=== PATIENT | female | born 1945 | race Caucasian/White ===

== ENCOUNTER 2018-03-25 14:11 | Inpatient (IN) | payer OTHER, BC, MEDICARE ==
[~2018-03-25] VITALS: Ht 167.6 cm; Wt 67.6 kg
--- NOTE | 2018-03-25 14:17 | ED GENERAL ADULT ---
History of Present Illness General Chief Complaint: General Adult Stated Complaint: HYPOTENSION Source: patient, family Exam Limitations: no limitations Vital Signs & Intake/Output Vital Signs & Intake/Output Vital Signs Date Time Temp Pulse Resp B/P B/P Pulse O2 O2 Flow FiO2 Mean Ox Delivery Rate 03/25 1721 98.9 114 22 100/55 97 Room Air 03/25 1600 99.0 104 24 111/65 97 Nasal 2.0L Cannula 03/25 1500 97 Nasal 2.0L Cannula 03/25 1418 98.6 111 18 130/76 96 Room Air Allergies Coded Allergies: amoxicillin (From AUGMENTIN) (DIARRHEA 03/25/18) clavulanic acid (From AUGMENTIN) (DIARRHEA 03/25/18) pregabalin (From LYRICA) (IRRITABLE AND OUT OF IT 03/25/18) Reconcile Medications Albuterol Sulfate (Proair Hfa) 90 MCG HFA.AER.AD 2 PUF INH Q4 PRN SHORTNESS OF BREATH (Reported) Budesonide/Formoterol Fumarate (Symbicort 160-4.5 Mcg Inhaler) 160 MCG-4.5 MCG/ ACTUATION HFA.AER.AD 2 PUF INH BID SHORTNESS OF BREATH (Reported) Dexamethasone 4 MG TABLET 1 TAB PO WITH MEALS STEROID (Reported) Duloxetine HCl 60 MG CAPSULE.DR 1 CAP PO DAILY UNKNOWN (Reported) Hydroxychlorquine (Plaquenil) 200 MG TABLET 1 TAB PO BID UNKNOWN (Reported) Lisinopril 20 MG TABLET 1 TAB PO DAILY HEART (Reported) Oxycodone HCl 5 MG TABLET 1-2 TAB PO Q4-6 PRN PRN PAIN (Reported) Pantoprazole Sodium 40 MG TABLET.DR 2 TAB PO DAILY GI (Reported) Prednisone 2.5 MG TABLET 1 TAB PO DAILY PRN STEROID (Reported) Rosuvastatin Calcium (Crestor) 5 MG TABLET 1 TAB PO DAILY CHOLESTEROL ( Reported) Triage Nurses Notes Reviewed? yes Onset: Abrupt Duration: hour(s): Timing: recent history HPI: 03/25/18 6:19 PM 72-year-old female presents to the emergency department for hypotension. According to Dr. Ayala' she was at the cancer center today and was scheduled for radiation therapy. She had been weaned off steroids and presented with a blood pressure of 60 and feeling like she was given a pass out. She denies any chest pain. She does have chronic shortness of breath. She has a history of metastatic lung cancer. Past History Medical History Any Pertinent Medical History? see below for history Respiratory: lung cancer metastatic Pneumonia Vaccine: 08/20/10 Influenza Vaccine: 07/21/11 Surgical History Surgical History: non-contributory Psychosocial History Who do you live with Spouse Services at Home None What is your primary language Romansh Family History Hx Contributory? No Review of Systems Review of Systems Constitutional: Denies: fever. EENTM: Reports: no symptoms. Respiratory: Reports: cough, short of breath. Cardiovascular: Denies: chest pain. GI: Denies: abdominal pain. Genitourinary: Reports: no symptoms. Musculoskeletal: Reports: no symptoms. Skin: Reports: no symptoms. Neurological/Psychological: Reports: see HPI. Hematologic/Endocrine: Reports: no symptoms. Immunologic/Allergic: Reports: no symptoms. Physical Exam Physical Exam General Appearance: alert, awake, anxious, moderate distress Head: atraumatic, normal appearance Eyes: Bilateral: normal appearance, PERRL, EOMI. Ears, Nose, Throat: normal pharynx, normal ENT inspection, hearing grossly normal Neck: normal inspection, supple, full range of motion Respiratory: decreased breath sounds Cardiovascular: regular rate/rhythm Peripheral Pulses: 2+ radial (R), 2+ radial (L) Gastrointestinal: soft, non-tender Back: decreased range of motion Extremities: normal inspection Neurologic/Psych: no motor/sensory deficits, awake, alert, oriented x 3 Skin: pallor Core Measures ACS in differential dx? No CVA/TIA Diagnosis: No Sepsis Present: No Sepsis Focused Exam Completed? No Progress Differential Diagnoses I considered the following diagnoses in my evaluation of the patient: [Pulmonary embolism, pneumonia, sepsis, adrenal insufficiency, symptomatic anemia, dehydration] Plan of Care: Orders Procedure Date/time Status Heart Healthy Diet 03/26 B Active Change service to 03/25 1827 Active Patient Data 03/25 1804 Active ED Holding Orders 03/25 1744 Active Admit to inpatient 03/25 1744 Active Vital Signs 03/25 1744 Active Code Status 03/25 1744 Active CTA CHEST-PULMONARY EMBOLISM 03/25 1726 Active Intake & Output 03/25 1613 Active CULTURE,URINE 03/25 1420 Active BLOOD CULTURE 03/25 1420 Active URINALYSIS 03/25 1420 Complete TROPONIN LEVEL 03/25 142 Complete D-DIMER 03/25 1420 Complete COMPREHENSIVE METABOLIC PANEL 03/25 142 Complete CBC WITHOUT DIFFERENTIAL 03/25 142 Complete EKG 03/25 142 Active Current Medications Sig/Aleja Start time Last Medication Dose Stop Time Status Admin Azithromycin 500 MG ONCE ONE 03/25 1745 AC 03/25 (Zithromax) 03/25 Sodium Chloride 250 ML (Normal Saline 0.9%) Laboratory Tests 03/25/18 1600: Urinalysis LIGHT H, Urine Color YEL, Urine Clarity HAZY H, Urine pH 6.0, Ur Specific Wheatley >= 1.030, Urine Protein TRACE H, Urine Ketones NEG, Urine Nitrite NEG, Urine Bilirubin NEG, Urine Urobilinogen 0.2, Ur Leukocyte Esterase NEG, Ur Microscopic SEDIMENT EXAMINED, Urine RBC 3-5, Urine WBC 1-3 H, Ur Epithelial Cells FEW, Hyaline Casts 5-10 H, Granular Casts RARE H, Urine Mucus FEW, Urine Hemoglobin SMALL H, Urine Glucose NEG 03/25/18 1458: Anion Gap 9, Estimated GFR > 60, BUN/Creatinine Ratio 31.1 H, Glucose 132 H, Calcium 8.8, Total Bilirubin 0.6, AST 25, ALT 50, Alkaline Phosphatase 101, Troponin I 0.07, Total Protein 6.0 L, Albumin 3.3 L, Globulin 2.7, Albumin/ Globulin Ratio 1.2, D-Dimer High Sensitivty 862 H, CBC w Diff MAN DIFF ORDERED, RBC 4.80, MCV 84.1, MCH 28.4, MCHC 33.8, RDW 18.6 H, MPV 7.2 L, Gran % 94.1 H , Lymphocytes % 2.6 L, Monocytes % 3.1, Eosinophils % 0.1, Basophils % 0.1, Absolute Granulocytes 11.8 H, Segmented Neutrophils 87 H, Band Neutrophils 4, Absolute Lymphocytes 0.3 L, Lymphocytes 4 L, Monocytes 2, Absolute Monocytes 0.4, Absolute Eosinophils 0, Absolute Basophils 0, Metamyelocytes 2 H, Myelocytes 1 H, Platelet Estimate ADEQUATE, Normocytic RBCs VERIFIED, Normochromic RBCs VERIFIED Microbiology 03/25 1600 URINE ROUT: Urine Culture - RECD 03/25 1510 BLOOD: Blood Culture - RECD 03/25 1458 BLOOD: Blood Culture - RECD Initial ED EKG: nonspecific ST T wave chg, Sinus tachycardia, motion artifact Departure Departure Disposition: STILL A PATIENT Condition: Stable Clinical Impression Primary Impression: Hypotension Secondary Impressions: Lung cancer, Pneumonia Referrals: Jeane LUEVANO,Diogo Cantrell (PCP/Family) Departure Forms: Customer Survey General Discharge Information Comments PATIENT: SANJAY KNIGHT PRESENT AGE: 72 PATIENT ACCOUNT NO: [id number] : 44 LOCATION: [facility] ORDERING PHYSICIAN: Reuben Mclaughlin DO SERVICE DATE: 03/25/18 EXAM TYPE: RAD - XRY-PORTABLE CHEST XRAY EXAMINATION: XR PORTABLE CHEST CLINICAL INFORMATION: Hypertension. Rule out pneumonia. COMPARISON: 02/19/2018 TECHNIQUE: Portable frontal view of the chest was obtained. FINDINGS: There is elevation of the left hemidiaphragm with marked volume loss left lower lobe and lingula. Aeration of this region is slightly improved as compared to prior. Ill-defined attenuation on the left hilar region is consistent with the known left perihilar mass. There is a 1.7 cm nodular opacity overlying the right upper lobe at the level of the right third rib anteriorly which is new as compared to prior. No additional opacities are identified in the right lung. Cardiac silhouette is obscured by the elevated left hemidiaphragm. Calcific atherosclerosis is present in the thoracic aorta. A total shoulder prosthesis is present on the right. Soft tissue anchors from a rotator cuff repair are present on the left. 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 IMPRESSION: 1. Improved aeration of the left lung base as compared to prior with persistent volume loss and atelectasis, as result of the left hilar mass. Superimposed consolidation be difficult to exclude in this region. 2. New 1.7 cm nodular opacity in the right midlung which could be due to a new focus of developing consolidation. DICTATED BY: Deep Stratton MD DATE/TIME DICTATED:03/25/181444 CLINICAL PROGRAM MANAGER:JENNIFER DATE/TIME TRANSCRIBED:03/25/181444 CONFIDENTIAL, DO NOT COPY WITHOUT APPROPRIATE AUTHORIZATION. <Electronically signed in Other Vendor System> SIGNED BY: Deep Stratton MD 03/25/18 9599 Admission Note Spoke With: Jude Winters MD Documentation of Exam: Documentation of any treatments & extenuating circumstances including Concerns Regarding Discharge (functional status, medication knowledge or non-compliance, living conditions, etc.) that warrant an admission rather than observation: Critical Care Note Critical Care Note Critical Care Time: 30-74 min
[2018-03-25] MEDS ORDERED: PROAIR HFA8.5 GM INH (14:44)
[2018-03-25] MEDS ORDERED: SYMBICORT 16010.2 GM INH (14:45)
[2018-03-25] MEDS ORDERED: CRESTOR5 M1 PO (14:45)
[2018-03-25] MEDS ORDERED: DULOXETINE HCL60 MG PO (14:46)
[2018-03-25] MEDS ORDERED: DEXAMETHASONE4 M1 PO (14:46)
[2018-03-25] MEDS ORDERED: LISINOPRIL20 M1 PO (14:47)
[2018-03-25] MEDS ORDERED: PLAQUENIL200 M1 PO (14:47)
[2018-03-25] MEDS ORDERED: PANTOPRAZOLE SO40 M1 PO (14:48)
[2018-03-25] MEDS ORDERED: OXYCODONE HCL5 M1 PO (14:48)
[2018-03-25] MEDS ORDERED: PREDNISONE2.5 M1 PO (14:49)
--- NOTE | 2018-03-25 14:56 | RADIOLOGY REPORT ---
EXAMINATION: XR PORTABLE CHEST CLINICAL INFORMATION: Hypertension. Rule out pneumonia. COMPARISON: 02/19/2018 TECHNIQUE: Portable frontal view of the chest was obtained. FINDINGS: There is elevation of the left hemidiaphragm with marked volume loss left lower lobe and lingula. Aeration of this region is slightly improved as compared to prior. Ill-defined attenuation on the left hilar region is consistent with the known left perihilar mass. There is a 1.7 cm nodular opacity overlying the right upper lobe at the level of the right third rib anteriorly which is new as compared to prior. No additional opacities are identified in the right lung. Cardiac silhouette is obscured by the elevated left hemidiaphragm. Calcific atherosclerosis is present in the thoracic aorta. A total shoulder prosthesis is present on the right. Soft tissue anchors from a rotator cuff repair are present on the left. 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 IMPRESSION: 1. Improved aeration of the left lung base as compared to prior with persistent volume loss and atelectasis, as result of the left hilar mass. Superimposed consolidation be difficult to exclude in this region. 2. New 1.7 cm nodular opacity in the right midlung which could be due to a new focus of developing consolidation.
[2018-03-25 15:11] LABS: ABSOLUTE BASOPHIL COUNT 0 /CUMM (0.0-0.2); ABSOLUTE EOSINOPHIL COUNT 0 /CUMM (0.0-0.7); ABSOLUTE GRANULOCYTE CT 11.8 /CUMM (1.4-6.5); ABSOLUTE LYMPH COUNT 0.3 /CUMM (1.2-3.4); ABSOLUTE MONOCYTE COUNT 0.4 /CUMM (0.10-0.60); BASOPHIL % 0.1 % (0.0-2.0); EOSINOPHIL % 0.1 % (0-5); GRANULOCYTE % 94.1 % (42.2-75.2); HEMATOCRIT 40.4 % (37-47); MEAN CORPUSCULAR HGB 28.4 PG (27.0-31.0); MEAN CORPUSCULAR HGB CONC 33.8 G/DL (33.0-37.0); MEAN CORPUSCULAR VOLUME 84.1 FL (81.0-99.0); MEAN PLATELET VOLUME 7.2 FL (7.4-10.4); PLATELET COUNT 192 /CUMM (130-400); RBC DISTRIBUTION WIDTH 18.6 % (11.5-14.5); WHITE BLOOD CELL COUNT 12.6 /CUMM (4.8-10.8)
--- NOTE | 2018-03-25 18:56 | CT SCAN REPORT ---
EXAMINATION: CT ANGIOGRAM OF THE CHEST WITH AND WITHOUT CONTRAST (CT PULMONARY ANGIOGRAM FOR PE) CLINICAL INFORMATION: Shortness of breath. Hypotension. COMPARISON: CT from prior lung biopsy performed 02/19/2018. No prior diagnostic CT available. TECHNIQUE: Prior to contrast administration, noncontrast localization images were obtained. Subsequently, multidetector volumetric imaging was performed from the thoracic inlet to below the diaphragms following the administration of 95 mL Optiray 320 intravenous contrast. No contrast reaction reported. Sagittal, coronal, and MIP oblique sagittal reformatted images were obtained on the CT workstation, uploaded to PACS, and reviewed. Total exam dose-length product 262 mGy-cm. FINDINGS: QUALITY OF STUDY/CONTRAST BOLUS: Satisfactory PULMONARY ARTERIES: No central or segmental pulmonary emboli. There is cut off of a lingular subsegmental branch extending into the hilar mass. THORACIC AORTA: No aneurysm or dissection. LUNG: The central airways are patent. There is significant narrowing of the central left lower lobe bronchi. There is central occlusion of the lingular bronchi. There is severe centrilobular emphysema. There is a centrally necrotic left upper lobe central mass which is indistinguishable from the hilum. This area measures approximately 4.8 x 4.5 x 7.9 cm. This extends inferiorly in the lingula and could be in part associated with segmental collapse. The central foci of gas suggests necrosis. Filling defects within the central bronchi in this area suggests bronchial invasion. There is also irregularity in the hilar region suggesting hilar invasion. In addition, there is a spiculated right upper lobe nodule which measures 2 x 0.9 x 1.3 cm. This is not seen on the previous CT from 02/19/2018. Additional dependent opacity along the right major fissure seen on series 2 image 247. This is unchanged. Additional scattered smaller nodules are noted. For instance, anterior right upper lobe 0.4 cm nodule, series 2 image 91. Right upper lobe 0.3 cm nodule on series 2 image 117. Left upper lobe spiculated 0.5 cm nodule, series 2 image 89. There is dependent opacity in the left lower lobe. There is a small left pleural effusion. No pneumothorax. MEDIASTINUM: The heart is normal in size. Trace pericardial effusion. There is subcarinal lymphadenopathy with short axis dimension measuring 1.7 cm. Invasion of the soft tissue irregularity in the left hilum and AP window. No evidence of septal bowing or right heart strain. CHEST WALL/AXILLA: No axillary or internal mammary lymphadenopathy. OSSEOUS STRUCTURES: No acute or suspicious osseous abnormality. Multilevel degenerative changes are seen in the spine. UPPER ABDOMEN: Left upper pole renal cyst. No reflux of contrast into the hepatic veins to suggest elevated right heart pressures. IMPRESSION: 1. No pulmonary embolism. 2. Invasive left perihilar necrotic mass, with extension into the local bronchi and adjacent hilum. The extension of density into the lingula could represent additional neoplasm versus segmental lung collapse. 3. Multiple additional pulmonary nodules are present, which are nonspecific. While these could be infectious or inflammatory, malignancy is not excluded, particularly with a background of severe emphysema. Most prominently, the spiculated right upper lobe 2 cm nodule was not seen on the previous biopsy planning CT from 02/19/2018. VTE: negative
--- NOTE | 2018-03-25 19:07 | Admission Certification ---
Admission Certification Certification Statement - As attending physician, I certify that at the time of - admission, based on clinical presentation, severity of - symptoms, need for further diagnostic testing and - therapeutic interventions, and risk of adverse outcomes - without in-hospital treatment, in my clinical assessment, - this patient requires an acute hospital stay for a minimum - of two nights or longer. I have also considered psychsocial - factors such as support system, advanced age, financial - issues, cognitive issues, and failed out-patient treatments, - past re-admission history, safety of patient, and lack of - compliance as applicable. Specific rationale supporting this admission is: 72 yo F with h/o adenocarcinoma of the lung comes in for evaluation of hypotension.
[2018-03-25 20:08] VITALS: BP 118/62
--- NOTE | 2018-03-25 20:26 | History & Physical ---
Kadeem Darling MD,[facility] 03/25/182024: General Information and HPI MD Statement: I have seen and personally examined YAKELIN KNIGHT and documented this H&P. The patient is a 72 year old F who presented with a patient stated chief complaint of [dizziness]. Source of Information: patient, family, old records History of Present Illness: Patient is 72 F with PMH of COPD (on 2l o2), h/o HTN, HLip, osteopenia, SLE (on prednisolon), RA, low plt (2/2 SLE) and lung cancer (richard Faust brain mets, dx 2m ago, s/p chemo and radiotx) presented to the ED for evaluation of dizziness due to low blood pressure. Patient was alert, partially oriented and was poor historian, accordingly her was interviewed to complete the history. Briefly patient was diagnosed with lung cancer 2 months ago, had chemotherapy and radiation (42 weeks, last episode yesterday). Patient also recieved several dosed of IV steroids for her brain mets, received 2 weeks of corticosteroids initially before gamma knife X1 on February 19, and then was again administered corticosteroids till last Saturday. She was then cotninued on oral prednisolon for her SLE. Today she went to cancer Center for planning continuation of care, however she had low blood pressure and was transferred to [facility]. Patient also had a recent episode of UTI and finished Bactrim course on Saturday, she reported some nausea but no vomiting, decreased appetite, sore throat, odynophagia. She also denied occasional headache and complained of weakness, reported chest soreness with cough and deep breathing, however denied any shortness of breathing, cough, and abdominal pain. She also denied smoking or drinking alcohol. Allergies/Medications Allergies: Coded Allergies: amoxicillin (From AUGMENTIN) (DIARRHEA 03/25/18) clavulanic acid (From AUGMENTIN) (DIARRHEA 03/25/18) pregabalin (From LYRICA) (IRRITABLE AND OUT OF IT 03/25/18) Home Med list Albuterol Sulfate (Proair Hfa) 90 MCG HFA.AER.AD 2 PUF INH Q4 PRN SHORTNESS OF BREATH (Reported) Budesonide/Formoterol Fumarate (Symbicort 160-4.5 Mcg Inhaler) 160 MCG-4.5 MCG/ ACTUATION HFA.AER.AD 2 PUF INH BID SHORTNESS OF BREATH (Reported) Dexamethasone 4 MG TABLET 1 TAB PO WITH MEALS STEROID (Reported) Duloxetine HCl 60 MG CAPSULE.DR 1 CAP PO DAILY UNKNOWN (Reported) Hydroxychlorquine (Plaquenil) 200 MG TABLET 1 TAB PO BID UNKNOWN (Reported) Lisinopril 20 MG TABLET 1 TAB PO DAILY HEART (Reported) Oxycodone HCl 5 MG TABLET 1-2 TAB PO Q4-6 PRN PRN PAIN (Reported) Pantoprazole Sodium 40 MG TABLET.DR 2 TAB PO DAILY GI (Reported) Prednisone 2.5 MG TABLET 1 TAB PO DAILY PRN STEROID (Reported) Rosuvastatin Calcium (Crestor) 5 MG TABLET 1 TAB PO DAILY CHOLESTEROL ( Reported) Past History Travel History Traveled to [place] past 21 day No Medical History Neurological: BRAIN METS Respiratory: lung cancer metastatic Cancer(s): LUNG CA, BRAIN METS Isolation History: Standard Pneumonia Vaccine: 08/20/10 Influenza Vaccine: 07/21/11 Surgical History Surgical History: non-contributory Past Family/Social History Psychosocial History Services at Home: None Review of Systems Review of Systems Constitutional: Reports: see HPI. Exam & Diagnostic Data Last 24 Hrs of Vital Signs/I&O Vital Signs Date Time Temp Pulse Resp B/P B/P Pulse O2 O2 Flow FiO2 Mean Ox Delivery Rate 03/25 2008 Nasal 2.0L Cannula 03/25 2008 99.5 105 19 118/62 100 Nasal 2.0L Cannula 03/25 1926 97 Nasal 2.0L Cannula 03/25 1925 98.3 101 18 113/57 98 Nasal 2.0L Cannula 03/25 1721 98.9 114 22 100/55 97 Room Air 03/25 1600 99.0 104 24 111/65 97 Nasal 2.0L Cannula 03/25 1500 97 Nasal 2.0L Cannula 03/25 1418 98.6 111 18 130/76 96 Room Air Intake & Output 03/26 0800 03/26 0000 03/25 1600 Intake Total 2450 Output Total 350 Balance 2100 Intake, IV 2450 Output, Urine 350 Patient 0 lb 130 lb Weight Weight Reported by Patient Reported by Patient Measurement Method Physical Exam General Appearance Alert, Cooperative, No Acute Distress, partially oriented, in her baseline according to Skin Temp/Moisture Exam: Warm/Dry Sepsis Skin Exam (color): Normal for Ethnicity HEENT Atraumatic, EOMI, ORAL TRUSH Cardiovascular Normal S1, Normal S2 Lungs decreased bilateral air entry,no wheezing Abdomen Soft, No Tenderness Neurological Normal Speech, Strength at 5/5 X4 Ext, Cranial Nerves 3-12 NL, remembers 1 of 3 words Extremities No Edema Last 24 Hrs of Labs/Judah: Laboratory Tests 03/25/18 2325: Troponin I 0.08 03/25/18 1600: Urinalysis LIGHT H, Urine Color YEL, Urine Clarity HAZY H, Urine pH 6.0, Ur Specific [place] >= 1.030, Urine Protein TRACE H, Urine Ketones NEG, Urine Nitrite NEG, Urine Bilirubin NEG, Urine Urobilinogen 0.2, Ur Leukocyte Esterase NEG, Ur Microscopic SEDIMENT EXAMINED, Urine RBC 3-5, Urine WBC 1-3 H, Ur Epithelial Cells FEW, Hyaline Casts 5-10 H, Granular Casts RARE H, Urine Mucus FEW, Urine Hemoglobin SMALL H, Urine Glucose NEG 03/25/18 1458: Anion Gap 9, Estimated GFR > 60, BUN/Creatinine Ratio 31.1 H, Glucose 132 H, Calcium 8.8, Total Bilirubin 0.6, AST 25, ALT 50, Alkaline Phosphatase 101, Troponin I 0.07, Total Protein 6.0 L, Albumin 3.3 L, Globulin 2.7, Albumin/ Globulin Ratio 1.2, TSH 2.480, Free T4 1.26, Cortisol PM Sample 21.6 H, D-Dimer High Sensitivty 862 H, CBC w Diff MAN DIFF ORDERED, RBC 4.80, MCV 84.1, MCH 28.4, MCHC 33.8, RDW 18.6 H, MPV 7.2 L, Gran % 94.1 H, Lymphocytes % 2.6 L, Monocytes % 3.1, Eosinophils % 0.1, Basophils % 0.1, Absolute Granulocytes 11.8 H, Segmented Neutrophils 87 H, Band Neutrophils 4, Absolute Lymphocytes 0.3 L, Lymphocytes 4 L, Monocytes 2, Absolute Monocytes 0.4, Absolute Eosinophils 0, Absolute Basophils 0, Metamyelocytes 2 H, Myelocytes 1 H, Platelet Estimate ADEQUATE, Normocytic RBCs VERIFIED, Normochromic RBCs VERIFIED Microbiology 03/25 2148 LOWER RESP: Respiratory Culture - ORD 03/25 2148 LOWER RESP: Gram Stain - ORD 03/25 1600 URINE ROUT: Urine Culture - RECD 03/25 1510 BLOOD: Blood Culture - RECD 03/25 1458 BLOOD: Blood Culture - RECD Assessment/Plan Assessment: Patient is 72 F presented with dizziness and low blood pressure PMH of COPD (on 2l o2), h/o HTN, HLip, osteopenia, SLE (on prednisolon), RA, low plt (2/2 SLE) and lung cancer (Dr Norman, w brain mets, dx 2m ago, s/p chemo and radiotx) VS, Ph Ex at admission: Labs at admission: WBC 12.6, bands 4, Hgb 13.6 BEP: Sodium 131, potassium 4.5, chloride 97, bicarbonate normal, BUN 28, creatinine 0.9, BUN/creatinine ratio 21, cortisol 21.6 Imagings at admission: * Chest x-ray: 1. Improved aeration of the left lung base as compared to prior with persistent volume loss and atelectasis, as result of the left hilar mass. Superimposed consolidation be difficult to exclude in this region. 2. New 1.7 cm nodular opacity in the right midlung which could be due to a new focus of developing consolidation. * Chest CTA: 1. No pulmonary embolism. 2. Invasive left perihilar necrotic mass, with extension into the local bronchi and adjacent hilum. The extension of density into the lingula could represent additional neoplasm versus segmental lung collapse. 3. Multiple additional pulmonary nodules are present, which are nonspecific. While these could be infectious or inflammatory, malignancy is not excluded, particularly with a background of severe emphysema. Most prominently, the spiculated right upper lobe 2 cm nodule was not seen on the previous biopsy planning CT from 02/19/2018. Patient was admitted to GM floor for management of following conditions: Dizziness, low blood pressure Most likely related to poor by mouth intake, we will rule out other insufficiency, possible sepsis can contribute Chronic steroid use Lung adenocarcinoma, with brain metastases, necrotic/infective component Leukocytosis, in setting of sepsis/steroid use Oral thrush Hyponatremia Possibly related to other insufficiency,? Evaluation for SIADH Chronic medical conditions, SLE, thrombus cytopenia, COPD -Admit to general medicine floor -Check vital signs, initial O2 sats positive, repeat in a.m. -Continue IV fluids -IV hydrocortisone 50 3 times a day -A.m. cortisol - Check urine lites -Follow cultures, urine Legionella and strep antigen -1 dose of vancomycin, Unasyn for anaerobes, we will hold off antibiotic for Pseudomonas for now, will continue monitor the need for antibiotic treatment -TRC -Nystatin oral solution swallow - nutrition consult - Continue home medication, hold lisinopril on hydroxychloroquine - US of soft tissue mass in the back - PT eval -Endo consult -Pulm Consult - inform Dr norman in AM DVT ppx: Lovenox and ALPS FC heart healthy As Ranked By This Provider Problem List: 1. Lung cancer 2. Hypotension Core Measures/Misc (07/28) Acute Coronary Syndrome ACS Diagnosis: No Congestive Heart Failure Congestive Heart Failure Diagnosis No Cerebrovascular Accident CVA/TIA Diagnosis: No VTE (View Protocol) VTE Risk Factors Age>40 No Mechanical VTE Prophylaxis d/t N/A MechProphylax Ordered No VTE Pharm Prophylaxis d/t NA PharmProphylax ordered Sepsis (View protocol) Sepsis Present: No [facility] 5299: Resident Review Statement Resident Statement: examined this patient, discussed with internal communications writer, agreed with internal communications writer, discussed with family, reviewed EMR data (avail), discussed with nursing Other Findings: Yakelin is 72 year old female with past medical history significant for hypertension, hyperlipidemia, COPD on 2 L nasal cannula, SLE on prednisone, autoimmune thrombocytopenia, rheumatoid arthritis, recently diagnosed 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 Patient presented to ED from cancer center with chief complaint of dizziness. Most of the history was obtained from patient's by the attending Dr. Moreno. He reported that while they were waiting to meet Dr. Norman in the office to discuss the treatment plan she started to have dizziness and blood pressure was noted to be 50/20, patient brought to ED for evaluation. Patient is a poor historian, alert, oriented 1 (herself) (this is her baseline per ), short-term memory loss was noted during the interview. She reported dizziness however denied blurry vision, falls. Denied any history of palpitation, shortness of breath. She reported pleuritic chest pain that is on and off but denied any history of GA or anginal-like pain. Patient denied GI, symptoms. Patient reported intermittent headache, intermittent dysphagia and sore throat. Denied any numbness or weakness, joint or muscle pain above baseline. On admission vital signs temperature 99.5, pulse 105, blood pressure 118/62, saturating 100% on 2 L Physical exam as above Problem list #Hypotension orthostatic versus dehydration versus sepsis #Centrally necrotic left upper lobe central mass that might represent necrotizing pneumonia #Possible radiation pneumonitis however no radiological evidence of this diagnosis #Immunocompromised status post radiotherapy and on chronic steroid #Adenocarcinoma of the lung with metastasis to the brain #Autoimmune thrombocytopenia, SLE, rheumatoid arthritis #Oral candidiasis #Hypertension hyperlipidemia Plan Admit to general medical floor Vitals every shift Orthostatic measurement Repeat CBC, PEB in a.m. Oxygen supplementation, continue home nebs and inhalers We will give 1 dose of vancomycin and start Unasyn to cover for anaerobic infection giving necrosis and chest x-ray that might suggest necrotizing pneumonia--- given that patient is immunocompromised with non-specific symptoms and the findings on CTA chest we decided to treat empirically pending reevaluation in a.m. by pulmonary consultation Pancultured Urine Legionella and Streptococcus antigen Hold off blood pressure medication Hold off prednisone, Plaquenil Start hydrocortisone IV 50 3 times daily for possible adrenal insufficiency Obtain a.m. cortisol Endocrine consultation in a.m. Pulmonary consultation in a.m. Courtesy call to Dr. Norman oncology Continue statin, Cymbalta, oxycodone IV fluid Nystatin suspension for oral candidiasis DVT prophylaxis Lovenox, Alps Code full--please review Dr. Moreno note for details about CODE STATUS Black LUEVANO, [facility] 03/25/18 2200: Attending MD Review Statement Attending Statement Attending MD Statement: examined this patient, discuss w/resident/PA/EXPLOSIVE OPERATOR GRENADE, agreed w/resident/PA/EXPLOSIVE OPERATOR GRENADE, discussed with family, reviewed images, amended to note Attending Assessment/Plan: 72 yo F with h/o HTN, HLD, COPD, SLE on prednisone, autoimmune thrombocytopenia, possible RA, recently diagnosed metastatic lung adenocarcinoma, chronic hypoxic respiratory failure on 2L O2, was brought in from the cancer center for hypotension. Patient is a limited historian, so I called patient's [place] who was able to provide me with details. Patient was diagnosed with adenocarcinoma of the lung metastatic to the brain 2 months ago. She follows with Dr. Norman and Dr. Sarabia. She underwent brain radiation following by 14 sessions of radiotherapy for the lung mass, last session was one day prior to admission. Today, patient was visiting Dr. Norman/ Dr. Sarabia to discuss further POC ?chemotherapy. While at the office, she c/o dizziness and was noted to have a BP of 50/20. She received 1 L of fluids and her SBP increased to 90's. She was then brought to the ER. Per , patient has been increasingly weak, unable to walk without assistance and gradual loss of appetite over the past few days. Patient does report sore throat and some difficulty swallowing. She has baseline exertional dyspnea for past 2 months, and uses oxygen throughout the day. She also c/o back pain and headache which is not new. reports that patient does have memory issues at baseline. Patient denies cough/ phlegm, fever/ chills, nausea, vomiting, abdominal pain or diarrhea. 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 Of note, patient was on dexamethasone prior to initiating radiation therapy, and this was tapered off one day prior. Patient has also been on prednisone 2.5 mg BID for lupus for the past few months as per Rheumatology JAMES Kimbrough. Vitals: Tmax 99.5, tachycardic HR 100-110's, BP 100-110's/55-65, sats 97% on 2L. Exam: AA, oriented x2, in no distress, dry mucosa, oral thrush+, PERRL, Neck supple, Chest reduced air entry, scattered rhonchi but no wheeze or crackles, Heart S1S2 regular, Abd soft, NT, LE: no edema, excoriations+. Back: Left upper back there is a 5 cm circular soft possibly cystic or fluid filled mass, nontender, no warmth or erythema. Labs: WBC 12.6, Plt 192, H/H 13.6/40.4, ANC 11.8, bands 4, D-dimer elevated, Na 131, K 4.5, BUN 28, creat 0.9, glucose 132, LFTs normal, trop 0.07, TSH and free T4 normal, random cortisol is 21.6. Urine trace proteinuria, WBC 1-3. CXR: improved aeration left lung base with persistent volume loss and atelectasis as a results of left hilar mass. Superimposed consolidation difficult to exclude. New 1.7 cm nodule opacity in right midung new focus of developing consolidation. CTA chest: no PE. Invasive left perihilar necrotic mass with extension into the local bronchi and adjacent hilum. Multiple additional pulmonary nodules ? infectious or malignant. Severe emphysema. New 2 cm spiculated RUL nodule is new. EKG: initial appeared SR but had baseline motion artifact. Repeat EKG is sinus tachycardia, with LVH and Qtc 441. Assessment and plan: 1. Dizziness 2. Hypotension resolving. Seems multifactorial in the setting of poor PO intake, possible adrenal insufficiency given chronic steroid use and cannot rule out sepsis/ infectious process necrotizing left lung mass with extension into bronchi and superimposed consolidation. No e/o UTI (recently treated with Bactrim for Ecoli UTI). No e/o SSTI. Patient is not neutropenic. 3. Adenocarcinoma of the left lung, metastatic to the brain s/p radiation therapy 4. Oral thrush 5. Hyponatremia again possibly from underlying adrenal insufficiency and poor PO intake 6. Leukocytosis in the setting of steroid use 7. Left upper back soft cystic mass 8. History of SLE and autoimmune thrombocytopenia 9. H/o COPD severe emphysema, not in exacerbation 10. Chronic hypoxic respiratory failure - Admit to General medicine - Check orthostats - Fall precautions - IV fluids - Check AM cortisol - Hold lisinopril - Stress dose steroids IV hydrocortisone 50 TID - Endo consult in AM - Check urine lytes, urine sodium excretion - Panculture, check urine legionella and strep Ag - Patient received Ceftriaxone and azithro in ER, will give one dose of Vanco and cover with Unasyn for the necrotic lung mass to cover for anaerobes, staph/ strep. - Pulm consult - TRC nebs - Nystatin oral swish and swallow - Nutrition consult - Resume symbicort, oxycodone, duloxetine and crestor - Hold plaquenil. - Ultrasound of soft tissue cystic mass on left upper back - Please inform Dr. Norman about patient's admission - PT eval DVT ppx Lovenox. Full code. I discussed with patient's Boo. He has had a talk with Yakelin in the past and have come to the conclusion of no aggressive measures if there is no quality of life or if she will be hooked up to machines. wishes to keep 'Full code' for now, but is agreeable for DNR/I if she deteriorates. * Orthostatic hypotension BP Lying 130/84 --> Sitting 118/80 --> Standing 108/ 70. Recheck orthostats in AM.
[2018-03-26 07:17] VITALS: BP 120/64
--- NOTE | 2018-03-26 08:17 | PN- Housestaff ---
Subjective Follow-up For: secondary adrenal insufficiency 2/2 chronic steroid use lung adenocarcinoma pneumonia Subjective: Patient denies dizziness or weakness. Denies pain. Is alert and oriented x2. Review of Systems Constitutional: Reports: no symptoms. Cardiovascular: Reports: no symptoms. Respiratory: Reports: no symptoms. Gastrointestinal: Reports: no symptoms. Genitourinary: Reports: no symptoms. Objective Last 24 Hrs of Vital Signs/I&O Vital Signs Date Time Temp Pulse Resp B/P B/P Pulse O2 O2 Flow FiO2 Mean Ox Delivery Rate 03/26 1433 98.8 99 16 118/84 98 03/26 0844 Nasal 2.0L Cannula 03/26 0800 94 Nasal 2.0L Cannula 03/26 0717 99.5 101 18 120/64 96 03/26 0000 94 Nasal 2.0L Cannula 03/25 2008 Nasal 2.0L Cannula 03/25 2008 99.5 105 19 118/62 100 Nasal 2.0L Cannula 03/25 192 97 Nasal 2.0L Cannula 03/25 192 98.3 101 18 113/57 98 Nasal 2.0L Cannula Intake & Output 03/26 1600 03/26 0800 03/26 0000 Intake Total 1540 1120 2450 Output Total 300 400 350 Balance 4618 616 9419 Intake, IV 800 1000 2450 Intake, Oral 740 120 Number 1 Bowel Movements Output, Urine 300 400 350 Patient 148 lb 0 lb Weight Weight Bed scale Reported by Patient Measurement Method Physical Exam General Appearance: Alert, Cooperative, No Acute Distress Cardiovascular: Regular Rate, Normal S1, Normal S2, No Murmurs Lungs: Clear to Auscultation, Normal Air Movement Abdomen: Normal Bowel Sounds, Soft, No Tenderness Assessment/Plan Assessment: Patient is 72 F presented with dizziness and low blood pressure PMH of COPD (on 2l o2), h/o HTN, HLip, osteopenia, SLE (on prednisolon), RA, low plt (2/2 SLE) and lung cancer (Dr Ayala, w brain mets, dx 2m ago, s/p chemo and radiotx) VS, Ph Ex at admission: Labs at admission: WBC 12.6, bands 4, Hgb 13.6 BEP: Sodium 131, potassium 4.5, chloride 97, bicarbonate normal, BUN 28, creatinine 0.9, BUN/creatinine ratio 21, cortisol 21.6 Imagings at admission: * Chest x-ray: 1. Improved aeration of the left lung base as compared to prior with persistent volume loss and atelectasis, as result of the left hilar mass. Superimposed consolidation be difficult to exclude in this region. 2. New 1.7 cm nodular opacity in the right midlung which could be due to a new focus of developing consolidation. * Chest CTA: 1. No pulmonary embolism. 2. Invasive left perihilar necrotic mass, with extension into the local bronchi and adjacent hilum. The extension of density into the lingula could represent additional neoplasm versus segmental lung collapse. 3. Multiple additional pulmonary nodules are present, which are nonspecific. While these could be infectious or inflammatory, malignancy is not excluded, particularly with a background of severe emphysema. Most prominently, the spiculated right upper lobe 2 cm nodule was not seen on the previous biopsy planning CT from 02/19/2018. Patient was admitted to [facility] floor for management of following conditions: Dizziness, low blood pressure Most likely related to poor by mouth intake, we will rule out other insufficiency, possible sepsis can contribute Chronic steroid use Lung adenocarcinoma, with brain metastases, necrotic/infective component Leukocytosis, in setting of sepsis/steroid use Oral thrush Hyponatremia Possibly related to other insufficiency,? Evaluation for SIADH Chronic medical conditions, SLE, thrombus cytopenia, COPD -Admit to general medicine floor -Check vital signs, initial O2 sats positive, repeat in a.m. -Continue IV fluids -IV hydrocortisone 50 3 times a day -A.m. cortisol - Check urine lites -Follow cultures, urine Legionella and strep antigen -1 dose of vancomycin, Unasyn for anaerobes, we will hold off antibiotic for Pseudomonas for now, will continue monitor the need for antibiotic treatment -TRC -Nystatin oral solution swallow - nutrition consult - Continue home medication, hold lisinopril on hydroxychloroquine - US of soft tissue mass in the back - PT eval -Endo consult -Pulm Consult - inform Dr ayala in AM DVT ppx: Lovenox and ALPS FC heart healthy Problem List: 1. Pneumonia 2. Lung cancer Pain Ratin
--- NOTE | 2018-03-26 08:20 | PN- Att Addend ---
See Addendum Attending Addendum Attending Brief Note Patient seen and examined. Plan of care discussed with the medical team and the patient. Available lab work and radiology test reports were reviewed. This morning she feels better and denies any pain. She also denies any recent fever chills difficulty breathing nausea vomiting or diarrhea. Exam: General: Patient awake alert oriented without any distress CVS: S1 plus S2 without any murmur or gallops Chest: Few scattered crepitation without any wheeze. There is no respiratory distress. 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 Other differential includes dehydration although would BUN/creatinine were normal at the time of admission, antihypertensive medications lisinopril or sepsis * Dizziness * History of metastatic lung adenocarcinoma with brain metastases * Suspected left-sided necrotic tumor versus pneumonia; legionella and strep pneumo antigen negative * Hyponatremia- improved * History of SLE * History of thrombocytopenia * History of COPD Plan * Continue Unasyn * Check lactic acid level * Follow-up a.m. cortisol level * Discontinue hydrocortisone and restart dexamethasone * Taper oxygen as tolerated * Follow up culture reports Current Medications Sig/Aleja Start time Last Medication Dose Route Stop Time Status Admin Albuterol Sulfate 2 PUF Q4P PRN 03/25 2200 AC INH Ampicillin Sodium/ 1,500 MG Q6 03/25 2359 AC 03/26 Sulbactam Sodium IV 0533 Sodium Chloride 100 ML Atorvastatin Calcium 20 MG 1700 03/26 1700 AC PO Azithromycin 500 MG ONCE ONE 03/25 Sodium Chloride 250 ML IV 03/25 1844 1745 Budesonide/ 2 PUF BID 03/26 09 AC Formoterol Fumarate INH Ceftriaxone Sodium 0 .STK-MED ONE 03/25 1755 DC .ROUTE Ceftriaxone Sodium 1,000 MG ONCE ONE 03/25 1745 DC 03/25 IV 03/25 174 175 Duloxetine HCl 60 MG DAILY 03/26 09 AC PO Enoxaparin Sodium 40 MG DAILY 03/26 09 AC SC Hydrocortisone 50 MG TID 03/26 900 AC Sodium Succinate IV Methylprednisolone 0 .STK-MED ONE 03/25 1755 DC .ROUTE Methylprednisolone 125 MG ONCE 03/25 DC 03/25 IV 03/25 1746 1759 Nystatin 5 ML 4 TIMES/DAY 03/25 214 AC PO Omeprazole 40 MG DAILY AC 03/26 0700 AC 03/26 PO 0533 Oxycodone HCl 10 MG Q4-6 PRN PRN 03/25 2245 AC PO Oxycodone HCl 5 MG Q4-6 PRN PRN 03/25 2200 AC PO Sodium Chloride 1,000 ML Q10H 03/25 1945 AC 03/25 IV 03/26 1544 2022 Sodium Chloride 1,000 ML BOLUS ONE 03/25 1730 DC 03/25 IV 03/25 1829 1742 Sodium Chloride 1,000 ML BOLUS ONE 03/25 1430 DC 03/25 IV 03/25 1529 1430 Vancomycin HCl 1,000 MG ONCE ONE 03/25 2145 DC 03/25 Sodium Chloride 250 ML IV 03/25 2244 2327 Laboratory Tests 03/26/18 0536: Sodium Pending, Potassium Pending, Chloride Pending, Carbon Dioxide Pending, Anion Gap Pending, BUN Pending, Creatinine Pending, BUN/Creatinine Ratio Pending , Troponin I Pending, Cortisol AM Sample Pending, CBC w Diff Pending, WBC Pending, RBC Pending, Hgb Pending, Hct Pending, MCV Pending, MCH Pending, MCHC Pending, RDW Pending, Plt Count Pending, MPV Pending 03/25/18 2325: Troponin I 0.08 03/25/18 1600: Urinalysis LIGHT H, Urine Color YEL, Urine Clarity HAZY H, Urine pH 6.0, Ur Specific [place] >= 1.030, Urine Protein TRACE H, Urine Ketones NEG, Urine Nitrite NEG, Urine Bilirubin NEG, Urine Urobilinogen 0.2, Ur Leukocyte Esterase NEG, Ur Microscopic SEDIMENT EXAMINED, Urine RBC 3-5, Urine WBC 1-3 H, Ur Epithelial Cells FEW, Hyaline Casts 5-10 H, Granular Casts RARE H, Urine Mucus FEW, Urine Hemoglobin SMALL H, Urine Glucose NEG 03/25/18 1600: Ur Random Creatinine 68.2, Ur Random Sodium 97 H, Ur Random Potassium 50.9, Fraction Sodium Excret 1.0 03/25/18 1458: Anion Gap 9, Estimated GFR > 60, BUN/Creatinine Ratio 31.1 H, Glucose 132 H, Calcium 8.8, Total Bilirubin 0.6, AST 25, ALT 50, Alkaline Phosphatase 101, Troponin I 0.07, Total Protein 6.0 L, Albumin 3.3 L, Globulin 2.7, Albumin/ Globulin Ratio 1.2, TSH 2.480, Free T4 1.26, Cortisol PM Sample 21.6 H, D-Dimer High Sensitivty 862 H, CBC w Diff MAN DIFF ORDERED, RBC 4.80, MCV 84.1, MCH 28.4, MCHC 33.8, RDW 18.6 H, MPV 7.2 L, Gran % 94.1 H, Lymphocytes % 2.6 L, Monocytes % 3.1, Eosinophils % 0.1, Basophils % 0.1, Absolute Granulocytes 11.8 H, Segmented Neutrophils 87 H, Band Neutrophils 4, Absolute Lymphocytes 0.3 L, Lymphocytes 4 L, Monocytes 2, Absolute Monocytes 0.4, Absolute Eosinophils 0, Absolute Basophils 0, Metamyelocytes 2 H, Myelocytes 1 H, Platelet Estimate ADEQUATE, Normocytic RBCs VERIFIED, Normochromic RBCs VERIFIED Microbiology 03/26 320 URINE ROUT: Legionella Antigen - COMP 03/26 320 URINE ROUT: Streptococcus pneumoniae Antigen (M - COMP 03/25 2148 LOWER RESP: Respiratory Culture - COLB 03/25 2148 LOWER RESP: Gram Stain - COLB 03/25 1600 URINE ROUT: Urine Culture - RECD 03/25 1510 BLOOD: Blood Culture - RECD 03/25 1458 BLOOD: Blood Culture - RECD Vital Signs Date Time Temp Pulse Resp B/P B/P Pulse O2 O2 Flow FiO2 Mean Ox Delivery Rate 03/26 0717 99.5 101 18 120/64 96 03/26 0000 94 Nasal 2.0L Cannula 03/25 2008 Nasal 2.0L Cannula 03/25 2008 99.5 105 19 118/62 100 Nasal 2.0L Cannula 03/25 1926 97 Nasal 2.0L Cannula 03/25 1925 98.3 101 18 113/57 98 Nasal 2.0L Cannula 03/25 1721 98.9 114 22 100/55 97 Room Air 03/25 1600 99.0 104 24 111/65 97 Nasal 2.0L Cannula 03/25 1500 97 Nasal 2.0L Cannula 03/25 1418 98.6 111 18 130/76 96 Room Air Intake & Output 03/26 1600 05/16 0800 05/ 0000 Intake Total 1120 2450 Output Total 400 350 Balance 720 2100 Intake, IV 1000 2450 Intake, Oral 120 Output, Urine 400 350 Patient 148 lb 0 lb Weight Weight Bed scale Reported by Patient Measurement Method
[2018-03-26 09:16] LABS: ABSOLUTE BASOPHIL COUNT 0 /CUMM (0.0-0.2); ABSOLUTE EOSINOPHIL COUNT 0 /CUMM (0.0-0.7); ABSOLUTE GRANULOCYTE CT 11.2 /CUMM (1.4-6.5); ABSOLUTE LYMPH COUNT 0.2 /CUMM (1.2-3.4); ABSOLUTE MONOCYTE COUNT 0.2 /CUMM (0.10-0.60); BASOPHIL % 0 % (0.0-2.0); EOSINOPHIL % 0 % (0-5); GRANULOCYTE % 96.8 % (42.2-75.2); MEAN CORPUSCULAR HGB 28.5 PG (27.0-31.0); MEAN CORPUSCULAR HGB CONC 33.7 G/DL (33.0-37.0); MEAN CORPUSCULAR VOLUME 84.5 FL (81.0-99.0); MEAN PLATELET VOLUME 7.4 FL (7.4-10.4); PLATELET COUNT 167 /CUMM (130-400); RBC DISTRIBUTION WIDTH 18.7 % (11.5-14.5); RED BLOOD CELL CT 4.07 /CUMM (4.20-5.40)
[2018-03-26 10:07] LABS: HEMATOCRIT 34.4 % (37-47)
[2018-03-26 10:21] LABS: WHITE BLOOD CELL COUNT 11.6 /CUMM (4.8-10.8)
--- NOTE | 2018-03-26 11:43 | Cons- Endocrinology ---
General Information and HPI Consulting Request Date of Consult: 03/26/18 Requested By: medical team Reason for Consult: evaluation and management of adrenal insufficiency Source of Information: patient Exam Limitations: poor historian History of Present Illness: Patient is 72 female with past medical history of COPD, HTN, dyslipidemia, osteopenia, SLE on steroid, RA, and lung cancer with brain mets s/p chemo and radiation therapy, presented to the ED for evaluation of dizziness and low blood pressure. Patient was on decadron and then prednisone prior to admission. She was placed stress dose of sterois last night--- hydrocortisone 50 mg iv three times a day. Patient has been feeling better this morning. Allergies/Medications Allergies: Coded Allergies: amoxicillin (From AUGMENTIN) (DIARRHEA 03/25/18) clavulanic acid (From AUGMENTIN) (DIARRHEA 03/25/18) pregabalin (From LYRICA) (IRRITABLE AND OUT OF IT 03/25/18) Home Med List: Albuterol Sulfate (Proair Hfa) 90 MCG HFA.AER.AD 2 PUF INH Q4 PRN SHORTNESS OF BREATH (Reported) Budesonide/Formoterol Fumarate (Symbicort 160-4.5 Mcg Inhaler) 160 MCG-4.5 MCG/ ACTUATION HFA.AER.AD 2 PUF INH BID SHORTNESS OF BREATH (Reported) Dexamethasone 4 MG TABLET 1 TAB PO WITH MEALS STEROID (Reported) Duloxetine HCl 60 MG CAPSULE.DR 1 CAP PO DAILY UNKNOWN (Reported) Hydroxychlorquine (Plaquenil) 200 MG TABLET 1 TAB PO BID UNKNOWN (Reported) Lisinopril 20 MG TABLET 1 TAB PO DAILY HEART (Reported) Oxycodone HCl 5 MG TABLET 1-2 TAB PO Q4-6 PRN PRN PAIN (Reported) Pantoprazole Sodium 40 MG TABLET.DR 2 TAB PO DAILY GI (Reported) Prednisone 2.5 MG TABLET 1 TAB PO DAILY PRN STEROID (Reported) Rosuvastatin Calcium (Crestor) 5 MG TABLET 1 TAB PO DAILY CHOLESTEROL ( Reported) Review of Systems Review of Systems Constitutional: Reports: see HPI. Cardiovascular: Denies: chest pain. Respiratory: Denies: short of breath. GI: Denies: abdominal pain. Hematologic/Endocrine: Denies: polyuria, polydipsia. 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 Home Services at Home: None Smoking Status: Former Smoker Exam & Diagnostic Data Last 24 Hrs of Vital Signs/I&O Vital Signs Date Time Temp Pulse Resp B/P B/P Pulse O2 O2 Flow FiO2 Mean Ox Delivery Rate 03/26 0844 Nasal 2.0L Cannula 03/26 0717 99.5 101 18 120/64 96 03/26 0000 94 Nasal 2.0L Cannula 03/25 2008 Nasal 2.0L Cannula 03/25 2008 99.5 105 19 118/62 100 Nasal 2.0L Cannula 03/25 1926 97 Nasal 2.0L Cannula 03/25 192 98.3 101 18 113/57 98 Nasal 2.0L Cannula 03/25 1721 98.9 114 22 100/55 97 Room Air 03/25 1600 99.0 104 24 111/65 97 Nasal 2.0L Cannula 03/25 1500 97 Nasal 2.0L Cannula 03/25 1418 98.6 111 18 130/76 96 Room Air Intake & Output 03/26 1600 03/26 0800 03/26 0000 Intake Total 1120 2450 Output Total 300 400 350 Balance -335 775 1105 Intake, IV 1000 2450 Intake, Oral 120 Number 1 Bowel Movements Output, Urine 300 400 350 Patient 148 lb 0 lb Weight Weight Bed scale Reported by Patient Measurement Method Physical Exam General Appearance: no apparent distress Neck: normal inspection, supple Respiratory: decreased breath sounds Cardiovascular: tachycardia (mild) Gastrointestinal: soft, non-tender Extremities: no edema Labs/Judah Results: Laboratory Tests 03/26 03/26 03/25 0930 [id number] Chemistry Sodium (137 - 145 mmol/L) 139 Potassium (3.5 - 5.1 mmol/L) 4.2 Chloride (98 - 107 mmol/L) 106 Carbon Dioxide (22 - 30 mmol/L) 24 Anion Gap (5 - 16) 9 BUN (7 - 17 mg/dL) 15 Creatinine (0.5 - 1.0 mg/dL) 0.5 Estimated GFR (>60 ml/min) > 60 BUN/Creatinine Ratio (7 - 25 %) 30.0 H Lactic Acid (0.7 - 2.1 mmol/L) 2.2 H Troponin I (< 0.11 ng/ml) 0.06 0.08 Cortisol AM Sample (4.46 - 22.7 ug/dL) 10.3 Hematology CBC w Diff NO MAN DIFF REQ WBC (4.8 - 10.8 /CUMM) 11.6 H RBC (4.20 - 5.40 /CUMM) 4.07 L Hgb (12.0 - 16.0 G/DL) 11.6 L Hct (37 - 47 %) 34.4 L MCV (81.0 - 99.0 FL) 84.5 MCH (27.0 - 31.0 PG) 28.5 MCHC (33.0 - 37.0 G/DL) 33.7 RDW (11.5 - 14.5 %) 18.7 H Plt Count (130 - 400 /CUMM) 167 MPV (7.4 - 10.4 FL) 7.4 Gran % (42.2 - 75.2 %) 96.8 H Lymphocytes % (20.5 - 51.1 %) 1.7 L Monocytes % (1.7 - 9.3 %) 1.5 L Eosinophils % (0 - 5 %) 0 Basophils % (0.0 - 2.0 %) 0 Absolute Granulocytes (1.4 - 6.5 /CUMM) 11.2 H Absolute Lymphocytes (1.2 - 3.4 /CUMM) 0.2 L Absolute Monocytes (0.10 - 0.60 /CUMM) 0.2 Absolute Eosinophils (0.0 - 0.7 /CUMM) 0 Absolute Basophils (0.0 - 0.2 /CUMM) 0 /15 05/15 1600 1600 Urines Urinalysis LIGHT H Urine Color (YEL,AMB,STR) YEL Urine Clarity (CLEAR) HAZY H Urine pH (5.0 - 8.0) 6.0 Ur Specific [place] (1.001 - 1.035) >= 1.030 Urine Protein (NEG,<30 MG/DL) TRACE H Urine Ketones (NEG) NEG Urine Nitrite (NEG) NEG Urine Bilirubin (NEG) NEG Urine Urobilinogen (0.1 - 1.0 EU/dl) 0.2 Ur Leukocyte Esterase (NEG) NEG Ur Microscopic SEDIMENT EXAMINED Urine RBC (0 - 5 /HPF) 3-5 Urine WBC (0 - 2 /HPF) 1-3 H Ur Epithelial Cells (NONE,FEW) FEW Hyaline Casts (0/LPF) 5-10 H Granular Casts (NONE /LPF) RARE H Urine Mucus (FEW,NONE) FEW Urine Hemoglobin (NEG) SMALL H Ur Random Creatinine (mg/dL) 68.2 Ur Random Sodium (30 - 90 mmol/L) 97 H Ur Random Potassium (mmol/L) 50.9 Fraction Sodium Excret (<1% %) 1.0 Urine Glucose (N MG/DL) NEG 03/25 1458 Chemistry Sodium (137 - 145 mmol/L) 131 L Potassium (3.5 - 5.1 mmol/L) 4.5 Chloride (98 - 107 mmol/L) 97 L Carbon Dioxide (22 - 30 mmol/L) 25 Anion Gap (5 - 16) 9 BUN (7 - 17 mg/dL) 28 H Creatinine (0.5 - 1.0 mg/dL) 0.9 Estimated GFR (>60 ml/min) > 60 BUN/Creatinine Ratio (7 - 25 %) 31.1 H Glucose (65 - 99 mg/dL) 132 H Calcium (8.4 - 10.2 mg/dL) 8.8 Total Bilirubin (0.2 - 1.3 mg/dL) 0.6 AST (14 - 36 U/L) 25 ALT (9 - 52 U/L) 50 Alkaline Phosphatase (<127 U/L) 101 Troponin I (< 0.11 ng/ml) 0.07 Total Protein (6.3 - 8.2 g/dL) 6.0 L Albumin (3.5 - 5.0 g/dL) 3.3 L Globulin (1.9 - 4.2 gm/dL) 2.7 Albumin/Globulin Ratio (1.1 - 2.2 %) 1.2 TSH (0.270 - 4.200 uIU/mL) 2.480 Free T4 (0.78 - 2.44 ng/dL) 1.26 Cortisol PM Sample (1.7 - 14.1) 21.6 H Coagulation D-Dimer High Sensitivty (0 - 243 ng/ml) 862 H Hematology CBC w Diff MAN DIFF ORDERED WBC (4.8 - 10.8 /CUMM) 12.6 H RBC (4.20 - 5.40 /CUMM) 4.80 Hgb (12.0 - 16.0 G/DL) 13.6 Hct (37 - 47 %) 40.4 MCV (81.0 - 99.0 FL) 84.1 MCH (27.0 - 31.0 PG) 28.4 MCHC (33.0 - 37.0 G/DL) 33.8 RDW (11.5 - 14.5 %) 18.6 H Plt Count (130 - 400 /CUMM) 192 MPV (7.4 - 10.4 FL) 7.2 L Gran % (42.2 - 75.2 %) 94.1 H Lymphocytes % (20.5 - 51.1 %) 2.6 L Monocytes % (1.7 - 9.3 %) 3.1 Eosinophils % (0 - 5 %) 0.1 Basophils % (0.0 - 2.0 %) 0.1 Absolute Granulocytes (1.4 - 6.5 /CUMM) 11.8 H Segmented Neutrophils (42.2 - 75.2 %) 87 H Band Neutrophils (0.0 - 5.0 %) 4 Absolute Lymphocytes (1.2 - 3.4 /CUMM) 0.3 L Lymphocytes (20.5 - 51.1 %) 4 L Monocytes (1.7 - 9.3 %) 2 Absolute Monocytes (0.10 - 0.60 /CUMM) 0.4 Absolute Eosinophils (0.0 - 0.7 /CUMM) 0 Absolute Basophils (0.0 - 0.2 /CUMM) 0 Metamyelocytes (0.0 - 1.0 %) 2 H Myelocytes (0 - 0 %) 1 H Platelet Estimate (ADEQUATE) ADEQUATE Normocytic RBCs VERIFIED Normochromic RBCs VERIFIED Assessment/Plan Assessment/Plan Patient is 72 female with past medical history of COPD, HTN, dyslipidemia, osteopenia, SLE on steroid, RA, and lung cancer with brain mets s/p chemo and radiation therapy, presented to the ED for evaluation of dizziness and low blood pressure. Patient was on decadron and then prednisone prior to admission. Clinically she has had secondary adrenal insufficiency due to hx of steroid treatment for SLE and brain mets. I will continue hydrocortisone 50 mg iv x 3 times a day for now. Most likely, Hydrocortisone can be decreased to 50 mg iv twice a day tomorrow. will follow. Consult Acknowledgment - Thank you for your consult request.
--- NOTE | 2018-03-26 13:57 | ULTRASOUND REPORT ---
EXAMINATION: US THYROID CLINICAL INFORMATION: Mass on the posterior surface of the neck/upper back. COMPARISON: None. TECHNIQUE: Focused ultrasound of soft tissue mass. FINDINGS: Patient described mass in the posterior aspect of the neck/upper back junction. Patient describes mass as being present for greater than 10 years. No pain, no interval change in size. In the area of palpable abnormality in the posterior neck/back junction, is a heterogeneous solid mass in the subcutaneous tissues. This demonstrates intermingled hyperechoic/hyperechoic foci. Margins are well defined. No internal vascularity. Mass measures 7 x 1.7 x 7.3 cm. IMPRESSION: Nonspecific mass in the subcutaneous soft tissues of the posterior aspect the neck/upper back junction. Differential considerations would include lipoma, with lesions of other etiologies have similar appearance. Although this lesion is nonspecific, no suspicious features are identified other than its prominent size. If there remains clinical concern, change in the character of the mass on physical exam, or the development of pain, consider MRI with and without contrast for further evaluation.
[2018-03-26 14:33] VITALS: BP 118/84
--- NOTE | 2018-03-26 20:13 | Cons- Pulmonary ---
General Information and HPI Consulting Request Date of Consult: 03/26/18 Requested By: Med team History of Present Illness: Patient is 72 F with PMH of COPD (on 2l o2), h/o HTN, HLip, osteopenia, SLE (on prednisolon), RA, low plt (2/2 SLE) and lung cancer (Dr Ayala, w brain mets, dx 2m ago, s/p chemo and radiotx) presented to the ED for evaluation of dizziness due to low blood pressure. Patient was alert, partially oriented and was poor historian, accordingly her was interviewed to complete the history. Briefly patient was diagnosed with stage 4 lung cancer 2 months ago, radiation to the thorax and had gammaknife to the brain Patient also recieved several dosed of IV steroids for her brain mets, received 2 weeks of corticosteroids initially before gamma knife X1 on February 19, and then was again administered corticosteroids till last Saturday. She was then cotninued on oral prednisolon for her SLE. SHe had a near syncopal episode and hypotension and hence admitted to the hospital Patient also had a recent episode of UTI and finished Bactrim course on Saturday, she reported some nausea but no vomiting, decreased appetite, sore throat, odynophagia. She also denied occasional headache and complained of weakness, reported chest soreness with cough and deep breathing, however denied any shortness of breathing, cough, and abdominal pain. She also denied smoking or drinking alcohol. Allergies/Medications Allergies: Coded Allergies: amoxicillin (From AUGMENTIN) (DIARRHEA 03/25/18) clavulanic acid (From AUGMENTIN) (DIARRHEA 03/25/18) pregabalin (From LYRICA) (IRRITABLE AND OUT OF IT 03/25/18) Home Med List: Albuterol Sulfate (Proair Hfa) 90 MCG HFA.AER.AD 2 PUF INH Q4 PRN SHORTNESS OF BREATH (Reported) Budesonide/Formoterol Fumarate (Symbicort 160-4.5 Mcg Inhaler) 160 MCG-4.5 MCG/ ACTUATION HFA.AER.AD 2 PUF INH BID SHORTNESS OF BREATH (Reported) Dexamethasone 4 MG TABLET 1 TAB PO WITH MEALS STEROID (Reported) Duloxetine HCl 60 MG CAPSULE.DR 1 CAP PO DAILY UNKNOWN (Reported) Hydroxychlorquine (Plaquenil) 200 MG TABLET 1 TAB PO BID UNKNOWN (Reported) Lisinopril 20 MG TABLET 1 TAB PO DAILY HEART (Reported) Oxycodone HCl 5 MG TABLET 1-2 TAB PO Q4-6 PRN PRN PAIN (Reported) Pantoprazole Sodium 40 MG TABLET.DR 2 TAB PO DAILY GI (Reported) Prednisone 2.5 MG TABLET 1 TAB PO DAILY PRN STEROID (Reported) Rosuvastatin Calcium (Crestor) 5 MG TABLET 1 TAB PO DAILY CHOLESTEROL ( Reported) Review of Systems Review of Systems Constitutional: Reports: see HPI. 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 Home Services at Home: None Smoking Status: Former Smoker Exam & Diagnostic Data Last 24 Hrs of Vital Signs/I&O Vital Signs Date Time Temp Pulse Resp B/P B/P Pulse O2 O2 Flow FiO2 Mean Ox Delivery Rate 03/26 1600 Nasal 2.0L Cannula 03/26 1433 98.8 99 16 118/84 98 03/26 0844 Nasal 2.0L Cannula 03/26 0800 94 Nasal 2.0L Cannula 03/26 0717 99.5 101 18 120/64 96 03/26 0000 94 Nasal 2.0L Cannula 03/25 2008 Nasal 2.0L Cannula 03/25 2008 99.5 105 19 118/62 100 Nasal 2.0L Cannula Intake & Output 03/26 1600 03/26 0800 03/26 0000 Intake Total 1540 1120 2450 Output Total 300 400 350 Balance 6492 831 5891 Intake, IV 800 1000 2450 Intake, Oral 740 120 Number 1 Bowel Movements Output, Urine 300 400 350 Patient 148 lb 0 lb Weight Weight Bed scale Reported by Patient Measurement Method Last 48 Hrs of Labs/Judah: Laboratory Tests 03/26/18 1225: Lactic Acid 2.1 03/26/18 0930: Lactic Acid 2.2 H 03/26/18 0536: Anion Gap 9, Estimated GFR > 60, BUN/Creatinine Ratio 30.0 H, Troponin I 0.06, Cortisol AM Sample 10.3, CBC w Diff NO MAN DIFF REQ, RBC 4.07 L, MCV 84.5, MCH 28.5, MCHC 33.7, RDW 18.7 H, MPV 7.4, Gran % 96.8 H, Lymphocytes % 1.7 L, Monocytes % 1.5 L, Eosinophils % 0, Basophils % 0, Absolute Granulocytes 11.2 H, Absolute Lymphocytes 0.2 L, Absolute Monocytes 0.2, Absolute Eosinophils 0, Absolute Basophils 0 03/25/18 2325: Troponin I 0.08 03/25/18 1600: Urinalysis LIGHT H, Urine Color YEL, Urine Clarity HAZY H, Urine pH 6.0, Ur Specific [place] >= 1.030, Urine Protein TRACE H, Urine Ketones NEG, Urine Nitrite NEG, Urine Bilirubin NEG, Urine Urobilinogen 0.2, Ur Leukocyte Esterase NEG, Ur Microscopic SEDIMENT EXAMINED, Urine RBC 3-5, Urine WBC 1-3 H, Ur Epithelial Cells FEW, Hyaline Casts 5-10 H, Granular Casts RARE H, Urine Mucus FEW, Urine Hemoglobin SMALL H, Urine Glucose NEG 03/25/18 1600: Ur Random Creatinine 68.2, Ur Random Sodium 97 H, Ur Random Potassium 50.9, Fraction Sodium Excret 1.0 03/25/18 1458: Anion Gap 9, Estimated GFR > 60, BUN/Creatinine Ratio 31.1 H, Glucose 132 H, Calcium 8.8, Total Bilirubin 0.6, AST 25, ALT 50, Alkaline Phosphatase 101, Troponin I 0.07, Total Protein 6.0 L, Albumin 3.3 L, Globulin 2.7, Albumin/ Globulin Ratio 1.2, TSH 2.480, Free T4 1.26, Cortisol PM Sample 21.6 H, D-Dimer High Sensitivty 862 H, CBC w Diff MAN DIFF ORDERED, RBC 4.80, MCV 84.1, MCH 28.4, MCHC 33.8, RDW 18.6 H, MPV 7.2 L, Gran % 94.1 H, Lymphocytes % 2.6 L, Monocytes % 3.1, Eosinophils % 0.1, Basophils % 0.1, Absolute Granulocytes 11.8 H, Segmented Neutrophils 87 H, Band Neutrophils 4, Absolute Lymphocytes 0.3 L, Lymphocytes 4 L, Monocytes 2, Absolute Monocytes 0.4, Absolute Eosinophils 0, Absolute Basophils 0, Metamyelocytes 2 H, Myelocytes 1 H, Platelet Estimate ADEQUATE, Normocytic RBCs VERIFIED, Normochromic RBCs VERIFIED Microbiology 03/26 320 URINE ROUT: Legionella Antigen - COMP 03/26 320 URINE ROUT: Streptococcus pneumoniae Antigen (M - COMP Assessment/Plan Impression/Plan: General Appearance Alert, Cooperative, No Acute Distress, partially oriented, in her baseline according to Skin Temp/Moisture Exam: Warm/Dry Sepsis Skin Exam (color): Normal for Ethnicity HEENT Atraumatic, EOMI, ORAL TRUSH Cardiovascular Normal S1, Normal S2 Lungs decreased bilateral air entry,no wheezing Abdomen Soft, No Tenderness Neurological Normal Speech, Strength at 5/5 X4 Ext, Cranial Nerves 3-12 NL, remembers 1 of 3 words Extremities No Edema CTA chest IMPRESSION: 1. No pulmonary embolism. 2. Invasive left perihilar necrotic mass, with extension into the local bronchi and adjacent hilum. The extension of density into the lingula could represent additional neoplasm versus segmental lung collapse. 3. Multiple additional pulmonary nodules are present, which are nonspecific. While these could be infectious or inflammatory, malignancy is not excluded, particularly with a background of severe emphysema. Most prominently, the spiculated right upper lobe 2 cm nodule was not seen on the previous biopsy planning CT from 02/19/2018. VTE: negative DICTATED BY: Marciano LUEVANO,Sanjay DATE/TIME DICTATED:03/25/181843 IMPRESSION This is a lady with previous history of systemic lupus on chronic prednisone hence immunosuppressed, severe emphysema and COPD with prior smoking history, hypertension, hyperlipidemia, recently diagnosed with stage IV non-small cell PDL 1 positive tumor by more than 50% criteria, recent gamma knife radiation to the brain and palliative radiation to her chest comes in with what appears to be a significant year syncopal episode and dizziness and hypotension now slowly improving after she did receive stress dose steroids. No cough no wheezing, no sputum production with no clinical evidence suggestive of sepsis. Her issues include * Stage IV non-small cell lung cancer adenocarcinoma, PDL 1 positive pending immunotherapy, recent radiation to the thorax, gamma knife radiation to her metastases to the brain, has been on very high doses of steroids, now has had near syncopal episode with hypotension most likely related to dehydration and cortisol insufficiency which seems to be slowly improving. * No clinical evidence suggestive of active bacterial pneumonia * Obvious progression of her tumor with new lung nodules and multiple bilateral small lung nodules most likely metastatic malignancy. * Recent radiation to the brain, systemic lupus on chronic steroids hence immunosuppressed with cortisol insufficiency * Severe emphysema noted with no significant COPD exacerbation * Worsening performance status rule out aspiration * Electrolyte abnormality which is slowly improving RECOMMENDATION * Continue current therapy with steroids * Fluid resuscitation seems to be completed patient appears now fluid resuscitated and IV fluids has been stopped and she does not require further IV fluids * Swallow evaluation * Keep the head of bed elevated * Low suspicion for aspiration pneumonia, it relatively stable she could be watched off antibiotics if her swallow eval is unremarkable * Sputum culture Discussed with the family Consult Acknowledgment - Thank you for your consult request.
[2018-03-26 21:44] VITALS: BP 132/70
[2018-03-27 05:46] VITALS: BP 138/64
--- NOTE | 2018-03-27 07:33 | PN- Housestaff ---
Subjective Follow-up For: orthostatic hypotension 2/2 secondary adrenal insufficiency 2/2 chronic steroid use lung adenocarcinoma questionable pneumonia Subjective: patient denies any weakness or dizziness. She has been walking around the floors. denies any shortness of breath. does note a minor cough. no chest pain. vitals are stable with oxygen sat 96% on her home oxygen dose of 2L. Review of Systems Constitutional: Reports: no symptoms. EENTM: Reports: no symptoms. Cardiovascular: Reports: no symptoms. Respiratory: Reports: no symptoms. Gastrointestinal: Reports: no symptoms. Genitourinary: Reports: no symptoms. Musculoskeletal: Reports: no symptoms. Skin: Reports: no symptoms. Objective Last 24 Hrs of Vital Signs/I&O Vital Signs Date Time Temp Pulse Resp B/P B/P Pulse O2 O2 Flow FiO2 Mean Ox Delivery Rate 03/27 0800 96 Nasal 2.0L Cannula 03/27 0546 98.0 91 20 138/64 96 Nasal 2.0L Cannula 03/27 0000 94 Nasal 2.0L Cannula 03/26 2144 98.3 97 18 132/70 96 Nasal Cannula Intake & Output 03/27 1600 03/27 0800 03/27 0000 Intake Total 025 317 8878 Output Total 250 650 Balance 710 440 350 Intake, IV 200 200 Intake, Oral 960 240 800 Number 1 Bowel Movements Output, Urine 250 650 Patient 149 lb 148 lb Weight Physical Exam General Appearance: Alert, Oriented X3, Cooperative, No Acute Distress Skin: No Rashes, No Breakdown, No Significant Lesion Skin Temp/Moisture Exam: Warm/Dry Sepsis Skin Exam (color): Normal for Ethnicity HEENT: Atraumatic, EOMI, Mucous Membr. moist/pink Neck: Supple, No JVD Cardiovascular: Regular Rate, Normal S1, Normal S2 Lungs: Clear to Auscultation, Normal Air Movement Abdomen: Normal Bowel Sounds, Soft, No Tenderness Neurological: Normal Gait, Normal Speech Extremities: No Clubbing, No Cyanosis, No Edema Current Medications: Current Medications Sig/Aleja Start time Last Medication Dose Route Stop Time Status Admin Albuterol Sulfate 2 PUF Q4P PRN 03/25 2200 DCD INH Ampicillin Sodium/ 1,500 MG Q6 03/25 2359 DCD 03/27 Sulbactam Sodium IV 1229 Sodium Chloride 100 ML Atorvastatin Calcium 20 MG 1700 03/26 1700 DCD 03/26 PO 1658 Budesonide/ 2 PUF BID 03/26 0900 DCD 03/27 Formoterol Fumarate INH 1004 Dexamethasone 4 MG WITH MEALS 03/26 1700 DCD 03/27 PO 1229 Duloxetine HCl 60 MG DAILY 03/26 0900 DCD 03/27 PO 1004 Enoxaparin Sodium 40 MG DAILY 03/26 0900 DCD 03/27 SC 1005 Nystatin 5 ML 4 TIMES/DAY 03/25 2147 DCD 03/27 PO 1229 Omeprazole 40 MG DAILY AC 03/26 0700 DCD 03/27 PO 0502 Oxycodone HCl 10 MG Q4-6 PRN PRN 03/25 2245 DCD PO Oxycodone HCl 5 MG Q4-6 PRN PRN 03/25 2200 DCD 03/26 PO 1914 Last 24 Hrs of Lab/Judah Results Last 24 Hrs of Labs/Mics: Microbiology 03/27 600 LOWER RESP: Respiratory Culture - COLB 03/27 600 LOWER RESP: Gram Stain - COLB Assessment/Plan Assessment: Assessment: Patient is 72 F presented with dizziness and low blood pressure, found to have positive orthostats in ED. PMH of COPD (on 2l o2), h/o HTN, HLip, osteopenia, SLE (on prednisolone), RA, low plt (2/2 SLE) and lung cancer (Dr Ayala, w brain mets, dx 2m ago, s/p chemo and radiotx) VS, Ph Ex at admission: Labs at admission: WBC 12.6, bands 4, Hgb 13.6 BEP: Sodium 131, potassium 4.5, chloride 97, bicarbonate normal, BUN 28, creatinine 0.9, BUN/creatinine ratio 21, cortisol 21.6 Imagings at admission: * Chest x-ray: 1. Improved aeration of the left lung base as compared to prior with persistent volume loss and atelectasis, as result of the left hilar mass. Superimposed consolidation be difficult to exclude in this region. 2. New 1.7 cm nodular opacity in the right midlung which could be due to a new focus of developing consolidation. * Chest CTA: 1. No pulmonary embolism. 2. Invasive left perihilar necrotic mass, with extension into the local bronchi and adjacent hilum. The extension of density into the lingula could represent additional neoplasm versus segmental lung collapse. 3. Multiple additional pulmonary nodules are present, which are nonspecific. While these could be infectious or inflammatory, malignancy is not excluded, particularly with a background of severe emphysema. Most prominently, the spiculated right upper lobe 2 cm nodule was not seen on the previous biopsy planning CT from 02/19/2018. Patient was admitted to floor for management of following conditions: Dizziness, low blood pressure: patient has positive orthostats and has been on chronic steroid therapy which has most likely depressed her HPA axis. Patient has lung cancer with brain mets and received severeal doses of IV steroids before having gamma knife on February 19, and then was administered dexamethasone until one week prior to arrival. She is chronically on steroids for her SLE. Other differential includes dehydration although BUN/creatinine were normal at the time of admission, antihypertensive medications lisinopril or sepsis due to pneumonia given the finding on chest x-ray and elevated lactic acid level although the level was only very slightly elevated at 2.1. No cough no wheezing, no sputum production with no clinical evidence suggestive of sepsis. -PM cortisol elevated, AM cortisol normal -Patient started on stress dose steroids on admission. As per endocrinology we can switch to her outpatient dose of dexamethasone which will cover her for her secondary adrenal insufficiency -Blood pressure today is 138/64, orthostats negative -Fluids can be stopped -WBCs 12.6 --> 11.6, minor elevation could be secondary to steroids. She is currently on UNASYN for potential aspiration pneumonia, but there is low suspicion. Afebrile. As per pulmonary, if stable should could be watched off antibiotics if her swallow eval is unremarkable. -Swallow eval was normal -Negative blood cultures, negative strep and legionella antigens -We will complete course of antibiotics in case of infection, cefuroxime 500 bid for 5 more days. Oral thursh -Treat with Nystatin Hyponatremia RESOLVED -Sodium from 131 to 139 -Urine lytes show evidence of dehydration Chronic medical conditions, SLE, COPD -Continue home meds Back/neck cystic appearing lesion - US of soft tissue mass: Nonspecific mass in the subcutaneous soft tissues of the posterior aspect the neck/upper back junction. Differential considerations would include lipoma, with lesions of other etiologies have similar appearance. Although this lesion is nonspecific, no suspicious features are identified other than its prominent size. If there remains clinical concern, change in the character of the mass on physical exam, or the development of pain, consider MRI with and without contrast for further evaluation. -She will follow up outpatient. full code regular diet dvt prophylaxis alps and lovenox Problem List: 1. Secondary adrenal insufficiency 2. Pneumonia 3. Hypotension Pain Ratin Pain Location: na Pain Goal: Remain pain free Pain Plan: na Tomorrow's Labs & Rationales: na
[2018-03-27] MEDS ORDERED: AUGMENTIN 875-1 EACH PO (08:36)
--- NOTE | 2018-03-27 08:38 | Patient Discharge Instructions ---
Discharge Instructions General Discharge Information You were seen/treated for: PNEUMONIA Special Instructions: 1.please f/u with your PCP within 1 week . 2. Please follow up with Endocrine as outpt. Please take the medications as directed Diet Recommended Diet: Regular Activity Activity Self Limited: Yes Acute Coronary Syndrome Inclusion Criteria At DC or during hospital stay patient has or had the following: ACS DIAGNOSIS No Discharge Core Measures Meds if any: Prescribed or Continued at Discharge Meds if any: NOT Prescribed or Continued at Discharge Congestive Heart Failure Inclusion Criteria At DC or during hospital stay patient has or had the following: CHF DIAGNOSIS No Discharge Core Measures Meds if any: Prescribed or Continued at Discharge Meds if any: NOT Prescribed or Continued at Discharge Cerebrovascular accident Inclusion Criteria At DC or during hospital stay patient has or had the following: CVA/TIA Diagnosis No Discharge Core Measures Meds if any: Prescribed or Continued at Discharge Meds if any: NOT Prescribed or Continued at Discharge Venous thromboembolism Inclusion Criteria VTE Diagnosis No VTE Type NONE VTE Confirmed by (Test) NONE Discharge Core Measures - Per Current guidelines, there needs to be overlap - treatment for the first 5 days of Warfarin therapy. - If discharged on Warfarin prior to 5 days of - overlap therapy, the patient will need to be - assessed for post discharge needs including - *Post discharge parental anticoagulation - *Warfarin and/or parental anticoagulation education - *Follow up date to check INR post discharge At least 5 days overlap therapy as Inpatient No Meds if any: Prescribed or Continued at Discharge Note: Overlap Therapy is Warfarin and Anticoagulant Meds if any: NOT Prescribed or Continued at Discharge
--- NOTE | 2018-03-27 09:05 | PN- Endocrinology ---
Assessment/Plan Endoscopy Assessment: Patient is 72 female with past medical history of COPD, HTN, dyslipidemia, osteopenia, SLE on steroid, RA, and lung cancer with brain mets s/p chemo and radiation therapy, presented to the ED for evaluation of dizziness and low blood pressure. Patient was on decadron and then prednisone prior to admission. Clinically she has had secondary adrenal insufficiency due to hx of steroid treatment for SLE and brain mets. She was on stress dose of hydrocortisone 50 mg iv x 3 times a day. Her BP improved and she felt better. Now she is back on Decadron 4 mg daily because of brain mets. The current dose of Decadron well covers adrenal insufficiency. I will sign off at this point. Please let me know if further assistance is needed. Plan: see above. Subjective Subjective: She stated that she feels well. Objective Last 24 Hrs of Vital Signs/I&O Vital Signs Date Time Temp Pulse Resp B/P B/P Pulse O2 O2 Flow FiO2 Mean Ox Delivery Rate 03/27 0546 98.0 91 20 138/64 96 Nasal 2.0L Cannula 03/27 0000 94 Nasal 2.0L Cannula 03/26 2144 98.3 97 18 132/70 96 Nasal Cannula 03/26 1600 Nasal 2.0L Cannula 03/26 1433 98.8 99 16 118/84 98 Intake & Output 03/27 1600 03/27 0800 03/27 0000 Intake Total 440 1000 Output Total 650 Balance 440 350 Intake, IV 200 200 Intake, Oral 240 800 Output, Urine 650 Patient 149 lb 148 lb Weight Results Pertinent Lab/Judah Results: Laboratory Tests 03/26 03/26 1225 0930 Chemistry Lactic Acid (0.7 - 2.1 mmol/L) 2.1 2.2 H
--- NOTE | 2018-03-27 10:21 | PN- Att Addend ---
Attending Addendum Attending Brief Note Patient seen and examined. Plan of care discussed with the medical team and the patient. Available lab work and radiology test reports were reviewed. This morning she feels better and denies any pain. She also denies any recent fever chills difficulty breathing nausea vomiting or diarrhea. Blood pressure has been stable. Exam: General: Patient awake alert oriented without any distress CVS: S1 plus S2 without any murmur or gallops Chest: Few scattered crepitation without any wheeze. There is no respiratory distress. 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 Other differential includes dehydration although would BUN/creatinine were normal at the time of admission, antihypertensive medications lisinopril or sepsis due to pneumonia given the finding on chest x-ray and elevated lactic acid level * Dizziness * History of metastatic lung adenocarcinoma with brain metastases * Suspected left-sided necrotic tumor versus pneumonia; legionella and strep pneumo antigen negative * Hyponatremia- improved * History of SLE * History of thrombocytopenia * History of COPD Plan * Change Unasyn to Augmentin and continue for 5 days * Continue dexamethasone * Continue oxygen * Can resume lisinopril 5 mg daily * Patient clinically stable for discharge today Current Medications Sig/Aleja Start time Last Medication Dose Route Stop Time Status Admin Albuterol Sulfate 2 PUF Q4P PRN 03/25 2200 AC INH Ampicillin Sodium/ 1,500 MG Q6 03/25 2359 AC 03/27 Sulbactam Sodium IV 0503 Sodium Chloride 100 ML Atorvastatin Calcium 20 MG 1700 03/26 1700 AC 03/26 PO 1658 Budesonide/ 2 PUF BID 03/26 09 AC 03/27 Formoterol Fumarate INH 1004 Dexamethasone 4 MG WITH MEALS 03/26 1700 AC 03/27 PO 1004 Duloxetine HCl 60 MG DAILY 03/26 09 AC 03/27 PO 1004 Enoxaparin Sodium 40 MG DAILY 03/26 09 AC 03/27 SC 1005 Hydrocortisone 50 MG TID 03/26 09 DC 03/26 Sodium Succinate IV 1340 Nystatin 5 ML 4 TIMES/DAY 03/25 2147 AC 03/27 PO 1004 Omeprazole 40 MG DAILY AC 03/26 0700 AC 03/27 PO 0502 Oxycodone HCl 10 MG Q4-6 PRN PRN 03/25 2245 AC PO Oxycodone HCl 5 MG Q4-6 PRN PRN 03/25 2200 AC 03/26 PO 1914 Sodium Chloride 1,000 ML Q10H 03/25 1945 DC 03/26 IV 03/26 1544 0900 Laboratory Tests 03/26/18 1225: Lactic Acid 2.1 03/26/18 0930: Lactic Acid 2.2 H 03/26/18 0536: Anion Gap 9, Estimated GFR > 60, BUN/Creatinine Ratio 30.0 H, Troponin I 0.06, Cortisol AM Sample 10.3, CBC w Diff NO MAN DIFF REQ, RBC 4.07 L, MCV 84.5, MCH 28.5, MCHC 33.7, RDW 18.7 H, MPV 7.4, Gran % 96.8 H, Lymphocytes % 1.7 L, Monocytes % 1.5 L, Eosinophils % 0, Basophils % 0, Absolute Granulocytes 11.2 H, Absolute Lymphocytes 0.2 L, Absolute Monocytes 0.2, Absolute Eosinophils 0, Absolute Basophils 0 03/25/18 2325: Troponin I 0.08 03/25/18 1600: Urinalysis LIGHT H, Urine Color YEL, Urine Clarity HAZY H, Urine pH 6.0, Ur Specific [place] >= 1.030, Urine Protein TRACE H, Urine Ketones NEG, Urine Nitrite NEG, Urine Bilirubin NEG, Urine Urobilinogen 0.2, Ur Leukocyte Esterase NEG, Ur Microscopic SEDIMENT EXAMINED, Urine RBC 3-5, Urine WBC 1-3 H, Ur Epithelial Cells FEW, Hyaline Casts 5-10 H, Granular Casts RARE H, Urine Mucus FEW, Urine Hemoglobin SMALL H, Urine Glucose NEG 03/25/18 1600: Ur Random Creatinine 68.2, Ur Random Sodium 97 H, Ur Random Potassium 50.9, Fraction Sodium Excret 1.0 03/25/18 1458: Anion Gap 9, Estimated GFR > 60, BUN/Creatinine Ratio 31.1 H, Glucose 132 H, Calcium 8.8, Total Bilirubin 0.6, AST 25, ALT 50, Alkaline Phosphatase 101, Troponin I 0.07, Total Protein 6.0 L, Albumin 3.3 L, Globulin 2.7, Albumin/ Globulin Ratio 1.2, TSH 2.480, Free T4 1.26, Cortisol PM Sample 21.6 H, D-Dimer High Sensitivty 862 H, CBC w Diff MAN DIFF ORDERED, RBC 4.80, MCV 84.1, MCH 28.4, MCHC 33.8, RDW 18.6 H, MPV 7.2 L, Gran % 94.1 H, Lymphocytes % 2.6 L, Monocytes % 3.1, Eosinophils % 0.1, Basophils % 0.1, Absolute Granulocytes 11.8 H, Segmented Neutrophils 87 H, Band Neutrophils 4, Absolute Lymphocytes 0.3 L, Lymphocytes 4 L, Monocytes 2, Absolute Monocytes 0.4, Absolute Eosinophils 0, Absolute Basophils 0, Metamyelocytes 2 H, Myelocytes 1 H, Platelet Estimate ADEQUATE, Normocytic RBCs VERIFIED, Normochromic RBCs VERIFIED Microbiology 03/27 600 LOWER RESP: Respiratory Culture - COLB 03/27 600 LOWER RESP: Gram Stain - COLB 03/26 320 URINE ROUT: Legionella Antigen - COMP 03/26 320 URINE ROUT: Streptococcus pneumoniae Antigen (M - COMP 03/25 2148 LOWER RESP: Respiratory Culture - CAN Cancelled: SPECIMEN NOT RECEIVED IN LABORATORY 03/25 2148 LOWER RESP: Gram Stain - CAN Cancelled: SPECIMEN NOT RECEIVED IN LABORATORY 03/25 1600 URINE ROUT: Urine Culture - RES 03/25 1510 BLOOD: Blood Culture - RES 03/25 1458 BLOOD: Blood Culture - RES Vital Signs Date Time Temp Pulse Resp B/P B/P Pulse O2 O2 Flow FiO2 Mean Ox Delivery Rate 03/27 0546 98.0 91 20 138/64 96 Nasal 2.0L Cannula 03/27 0000 94 Nasal 2.0L Cannula 03/26 2144 98.3 97 18 132/70 96 Nasal Cannula 03/26 1600 Nasal 2.0L Cannula 03/26 1433 98.8 99 16 118/84 98 Intake & Output 03/27 1600 03/27 0800 03/27 0000 Intake Total 440 1000 Output Total 650 Balance 440 350 Intake, IV 200 200 Intake, Oral 240 800 Output, Urine 650 Patient 149 lb 148 lb Weight Total time spent in preparation for discharge plan, patient education, and CMR preparation was 35 minutes.
[2018-03-27] MEDS ORDERED: CEFUROXIME500 MG PO (10:36)
--- NOTE | 2018-03-27 14:23 | PN- Pulmonary ---
Subjective HPI/Critical Care Issues: Doing well ready for dc Objective Current Medications: Current Medications Sig/Aleja Start time Last Medication Dose Route Stop Time Status Admin Albuterol Sulfate 2 PUF Q4P PRN 03/25 220 DCD INH Ampicillin Sodium/ 1,500 MG Q6 03/25 2359 DCD 03/27 Sulbactam Sodium IV 1229 Sodium Chloride 100 ML Atorvastatin Calcium 20 MG 1700 03/26 1700 DCD 03/26 PO 1658 Budesonide/ 2 PUF BID 03/26 0900 DCD 03/27 Formoterol Fumarate INH 1004 Dexamethasone 4 MG WITH MEALS 03/26 1700 DCD 03/27 PO 1229 Duloxetine HCl 60 MG DAILY 03/26 09 DCD 03/27 PO 1004 Enoxaparin Sodium 40 MG DAILY 03/26 09 DCD 03/27 SC 1005 Hydrocortisone 50 MG TID 03/26 09 DC 03/26 Sodium Succinate IV 1340 Nystatin 5 ML 4 TIMES/DAY 03/25 2147 DCD 03/27 PO 1229 Omeprazole 40 MG DAILY AC 03/26 0700 DCD 03/27 PO 0502 Oxycodone HCl 10 MG Q4-6 PRN PRN 03/25 224 DCD PO Oxycodone HCl 5 MG Q4-6 PRN PRN 03/25 2200 DCD 03/26 PO 1914 Sodium Chloride 1,000 ML Q10H 03/25 1945 DC 03/26 IV 03/26 1544 0900 Vital Signs & I&O Last 24 Hrs of Vitals and I&O: Vital Signs Date Time Temp Pulse Resp B/P B/P Pulse O2 O2 Flow FiO2 Mean Ox Delivery Rate 03/27 0800 96 Nasal 2.0L Cannula 03/27 0546 98.0 91 20 138/64 96 Nasal 2.0L Cannula 03/27 0000 94 Nasal 2.0L Cannula 03/26 2144 98.3 97 18 132/70 96 Nasal Cannula 03/26 1600 Nasal 2.0L Cannula 03/26 1433 98.8 99 16 118/84 98 Intake & Output 03/27 1600 03/27 0800 03/27 0000 Intake Total 974 808 6465 Output Total 250 650 Balance 710 440 350 Intake, IV 200 200 Intake, Oral 960 240 800 Number 1 Bowel Movements Output, Urine 250 650 Patient 149 lb 148 lb Weight Impression/Plan Impression/Plan Impression/Plan: General Appearance Alert, Cooperative, No Acute Distress, partially oriented, in her baseline according to Skin Temp/Moisture Exam: Warm/Dry Sepsis Skin Exam (color): Normal for Ethnicity HEENT Atraumatic, EOMI, ORAL TRUSH Cardiovascular Normal S1, Normal S2 Lungs decreased bilateral air entry,no wheezing Abdomen Soft, No Tenderness Neurological Normal Speech, Strength at 5/5 X4 Ext, Cranial Nerves 3-12 NL, remembers 1 of 3 words Extremities No Edema CTA chest IMPRESSION: 1. No pulmonary embolism. 2. Invasive left perihilar necrotic mass, with extension into the local bronchi and adjacent hilum. The extension of density into the lingula could represent additional neoplasm versus segmental lung collapse. 3. Multiple additional pulmonary nodules are present, which are nonspecific. While these could be infectious or inflammatory, malignancy is not excluded, particularly with a background of severe emphysema. Most prominently, the spiculated right upper lobe 2 cm nodule was not seen on the previous biopsy planning CT from 02/19/2018. VTE: negative DICTATED BY: Marciano LUEVANO,Sanjay DATE/TIME DICTATED:03/25/181843 IMPRESSION This is a lady with previous history of systemic lupus on chronic prednisone hence immunosuppressed, severe emphysema and COPD with prior smoking history, hypertension, hyperlipidemia, recently diagnosed with stage IV non-small cell PDL 1 positive tumor by more than 50% criteria, recent gamma knife radiation to the brain and palliative radiation to her chest comes in with what appears to be a significant year syncopal episode and dizziness and hypotension now slowly improving after she did receive stress dose steroids. No cough no wheezing, no sputum production with no clinical evidence suggestive of sepsis. Her issues include * Stage IV non-small cell lung cancer adenocarcinoma, PDL 1 positive pending immunotherapy, recent radiation to the thorax, gamma knife radiation to her metastases to the brain, has been on very high doses of steroids, now has had near syncopal episode with hypotension most likely related to dehydration and cortisol insufficiency which seems to be better and back to baseline * No clinical evidence suggestive of active bacterial pneumonia * Obvious progression of her tumor with new lung nodules and multiple bilateral small lung nodules most likely metastatic malignancy. * Recent radiation to the brain, systemic lupus on chronic steroids hence immunosuppressed with cortisol insufficiency * Severe emphysema noted with no significant COPD exacerbation * Worsening performance status rule out aspiration * Electrolyte abnormality which is slowly improving RECOMMENDATION * Continue current therapy with steroids per endo Stable ok to dc to follow as out pt Discussed with the family
== END 2018-03-27 13:02 | DRG 644 ==
LOC: ERH 14:11 → 2NB 17:44 → ERHI 17:44 → EDBEDREQTM 18:45 → EDBEDREQ 18:45 → ENRESERV 18:56 → ERHI 18:57 → ENTRNSPT 19:40 → EDTRNSPT 19:59 → EDTRNSPTSTS 19:59 → 2NB 20:04 → CMPTRNSPT 20:18 → 2NB 03-26 07:43 → ENPENDDIS 03-27 09:10 → ENTRNSPT 03-27 12:54 → EDTRNSPTSTS 03-27 12:59 → EDTRNSPT 03-27 12:59 → 2NB 03-27 13:02 → CMPTRNSPT 03-27 13:15
PROVIDERS: Emergency Medicine; Student in an Organized Health Care Education/Training Program
DX: E27.3 Drug-induced adrenocortical insufficiency (principal); J96.11 Chronic respiratory failure with hypoxia; B37.0 Candidal stomatitis; C78.02 Secondary malignant neoplasm of left lung; C78.01 Secondary malignant neoplasm of right lung; C79.31 Secondary malignant neoplasm of brain; E87.1 Hypo-osmolality and hyponatremia; I95.1 Orthostatic hypotension; D69.6 Thrombocytopenia, unspecified; M32.9 Systemic lupus erythematosus, unspecified; E86.0 Dehydration; T38.0X5A Adverse effect of glucocorticoids and synthetic analogues, initial encounter; Z99.81 Dependence on supplemental oxygen; J44.9 Chronic obstructive pulmonary disease, unspecified; M06.9 Rheumatoid arthritis, unspecified; M85.80 Other specified disorders of bone density and structure, unspecified site; D72.829 Elevated white blood cell count, unspecified; I10 Essential (primary) hypertension; E78.5 Hyperlipidemia, unspecified; Z79.52 Long term (current) use of systemic steroids; Z88.8 Allergy status to other drugs, medicaments and biological substances; Z85.118 Personal history of other malignant neoplasm of bronchus and lung; Z92.21 Personal history of antineoplastic chemotherapy; Z88.1 Allergy status to other antibiotic agents
CPT/HCPCS: 2NBSP; 84133; 84300; 36592; 71045; 81001; 82436; 82570; 87040; 87070; 87086; 87449; 87450; 93005; 93010; 96361; 96365; 97110-GO; 97116-GO; 97161-GP; 99291; J0456; J0696; J1650; J1720; J2930; J3370; J3490; J7040

== ENCOUNTER → 2018-05-02 | Day surgery (SDC) | payer OTHER, BC, MEDICARE ==
[~2018-05-02] VITALS: Ht 160 cm; Wt 64.0 kg
[~2018-05-02] MED LIST: AUGMENTIN 875-1 EACH PO; CEFUROXIME500 MG PO; CRESTOR5 M1 PO; DEXAMETHASONE4 M1 PO; DULOXETINE HCL60 MG PO; LISINOPRIL20 M1 PO; OXYCODONE HCL5 M1 PO; PANTOPRAZOLE SO40 M1 PO; PLAQUENIL200 M1 PO; PREDNISONE2.5 M1 PO; PROAIR HFA8.5 GM INH; SYMBICORT 16010.2 GM INH
--- NOTE | 2018-05-02 13:49 | RADIOLOGY REPORT ---
EXAMINATION: XR PORTABLE CHEST CLINICAL INFORMATION: Placement of Port-A-Cath. Lung cancer. Need chemotherapy. COMPARISON: Intraoperative films from 05/02/2018. CT scan of the chest dated 04/18/2018. Chest x-ray dated 03/25/2018. TECHNIQUE: Portable AP semierect view of the chest was obtained. FINDINGS: A right subclavian Port-A-Cath has been placed with tip at the cavoatrial junction region. No pneumothorax is seen. There is obscuration of the left heart border by elevation of the left hemidiaphragm and opacity in the left mid and lower lung, unchanged compared to the prior studies and consistent with the patient's known left perihilar mass and postobstructive consolidation in the left lingula. Associated moderate-sized pleural effusion is seen. Ill-defined reticular opacities seen in the right upper lobe, corresponding to the CT scan findings. IMPRESSION: 1. Right-sided Port-A-Cath is in place with tip at the cavoatrial junction. No pneumothorax. 2. Left perihilar mass with associated postobstructive consolidation and volume loss in the lingula and moderate size pleural effusion are again noted, unchanged. 3. Ill-defined nodular opacity in the right upper lobe is also unchanged.
--- NOTE | 2018-05-02 17:24 | RADIOLOGY REPORT ---
EXAMINATION:\H\ \N\XR CHEST CLINICAL INFORMATION: Port-A-Cath insertion in operating room. COMPARISON: Chest CT from 04/18/2018. TECHNIQUE: C-arm fluoroscopic imaging of the chest was utilized at time of Port-A-Cath insertion. NUMBER OF SAVED IMAGES: 2 DOSE: 0.198 mGy (0.84152 mGym2). TIME: 0 minutes. FINDINGS: The fluoroscopic images show a right chest wall medication port and subclavian catheter which extends into the superior vena cava. The tip of the catheter is near the level of junction of the superior vena cava and right atrium. IMPRESSION: Fluoroscopic imaging of the chest was utilized at time of the Port-A-Cath insertion.
--- NOTE | 2018-05-05 18:18 | Operative Report ---
Operative/Inv Procedure Report Surgery Date: 05/02/18 Name of Procedure: Fluoroscopic guided tunnel insertion of right subclavian Port-A-Cath Pre-Operative Diagnosis: Lung cancer Post-Operative Diagnosis: Same Estimated Blood Loss: scant Surgeon/Milieu Coordinator: Rose LUEVANO,Garry Ruiz Anesthesia: general endotracheal tube Operative/Procedure Note Note: With the patient supine on the OR table, right arm tucked, head not turned, after induction of MAC sedation, the patient's right subclavian area, including the shoulder neck and contralateral chest, were prepped and draped in the usual sterile fashion. After injecting local anesthetic in the right infraclavicular area, skin, subcutaneous to the clavicle, and inferiorly where the pocket will be, the patient was repositioned to Trendelenburg. Putting your right index finger on the sternal notch and thumb pressing down lateral to the curve of the clavicle, I made a puncture through the skin with the 15 blade scalpel next to thumb. Then along that line towards the tip of your finger, advance a large- bore needle, bevel towards the feet, on a slip tip 10 mL syringe barrel flat against the deltoid, advancing to bone and then "walking" it down just under the clavicle keeping the needle flat as possible, while maintaining vacuum with the plunger, accessing the subclavian venous blood, then replacing the syringe with a wire, sliding in with minimum resistance, confirming the position with the C- arm fluoroscope, making sure the wire is traveling down along the cava towards the right side of the heart and not up or across, and no ectopy. Next I secured the wire to the drape, measured (approximately 23 cm), cut and attached the catheter to the port. Approximately 3-4 cm inferior to the stick site a 2-1/2 cm long skin incision was made with a 15 blade scalpel along Langers lines. It was deepened with cautery and a space was developed inferiorly under the subcutaneous layer. The Port-A-Cath was laid in there and secured in [address] with 2-0 Prolene through the holes in the port, the sutures were kept loose on snaps at this point. Next the catheter was tunneled up subcutaneously with a snap and brought out through the stick site next to the wire. Then the dilator only, was passed over the wire until you could feel it slide under the clavicle, then removed, then re-advanced this time with the peel-away sheath over it, while advancing simultaneously pull the dilator out and advance the sheath, eventually pulling out the dilator and wire completely. Then the catheter was put into the sheath as far as it'll go then while holding that knuckle down with DeBakey's, gently peel-away the sheath with your budget assistant. Now the correct position of the catheter was confirmed with the fluoroscope, using a Koch needle and heparinized saline solution, the catheter was first aspirated then flushed with approximately 3 mL's, with minimal resistance. The patient was repositioned to neutral, after tying down the 2 Prolenes, the larger incision was closed in layers, 3-0 Vicryl deep and 4-0 subcuticular Monocryl for the skin, and one subcuticular Monocryl for the stick site. Both areas were covered with Mastisol Steri-Strips Telfa and Tegaderm. Chest x-ray was ordered to be done in the recovery room. Lap and sponge counts were correct. Wound expectancy was clean, IV fluids crystalloid, complications none, patient tolerated the procedure well was awakened and returned to the recovery room in satisfactory condition.
== END ==
LOC: STS 02:01
DX: C34.90 Malignant neoplasm of unspecified part of unspecified bronchus or lung (principal); J44.9 Chronic obstructive pulmonary disease, unspecified; Z99.81 Dependence on supplemental oxygen; Z87.891 Personal history of nicotine dependence; I10 Essential (primary) hypertension; K21.9 Gastro-esophageal reflux disease without esophagitis
CPT/HCPCS: 71045; C1751; J0690; J1644; J2250; J3490